=== PATIENT | female | born 1940 | race Caucasian/White ===

== ENCOUNTER 2020-12-17 13:22 | Outpatient (CLI) | payer MEDICARE, SELFPAY ==
[2020-12-17 13:58] LABS: Alanine Aminotransferase 19 U/L (4-35); Albumin Level 4.3 g/dL (3.5-5.1); Alkaline Phosphatase 75 U/L (38-126); Anion Gap 3 mmol/L (8-16); Aspartate Amino Transferase 32 U/L (14-36); Bilirubin,Total 0.6 mg/dL (0.2-1.3); Blood Urea Nitrogen 17 mg/dL (7-17); Calcium 9.1 mg/dL (8.4-10.2); Carbon Dioxide 32 mmol/L (22-30); Chloride 105 mmol/L (98-107); Cholesterol 229 mg/dL (0-200); Estimated Glomerular Filt Rate > 60; Glucose 97 mg/dL (65-105); HDL Direct 68 mg/dL; Potassium 4.6 mmol/L (3.4-5.0); Sodium 140 mmol/L (137-145); Triglycerides 105 mg/dL (<150)
[2020-12-17 14:09] LABS: LDL Cholesterol Direct 111 mg/dL
== END 2020-12-17 13:23 | disposition home or self-care (01) ==
PROVIDERS: PCP Emergency Medicine; Visit Provider Emergency Medicine
DX: E78.5 Hyperlipidemia, unspecified (principal)
CPT/HCPCS: 36415; 80053; 80061

== ENCOUNTER 2021-04-09 13:50 | Outpatient (CLI) | payer MEDICARE, SELFPAY ==
--- NOTE | ~2021-04-09 | MM_ITS ---
EXAMINATION: MM screening jeferson BI w ana paula HISTORY: Screening TECHNIQUE: Craniocaudal and mediolateral oblique 3-D tomosynthesis images were obtained and synthetic 2-D images were generated. CAD analysis was submitted and interpreted. COMPARISON: No prior studies for comparison. BREAST PARENCHYMAL COMPOSITION: The breasts are almost entirely fatty. FINDINGS: There is no evidence of suspicious mass, calcification, or architectural distortion to sugg est malignancy in either breast. There has been no suspicious interval change. IMPRESSION: 1. No mammographic evidence of malignancy. 2. Recommend routine screening mammography in one year. BI-RADS Category 1: Negative Reviewed, dictated and finalized at location A.
--- NOTE | ~2021-04-09 | DEXA_ITS ---
Bone Density Report Name: Maria Antonia Caballero Age: 81 Sex: Female Ethnicity: White Date of : 1940 Indication: osteopenia; height loss; prior fracture; cancer; asthma or emphysema; hysterectomy; postmenopausal Referring Provider: CHRISTIANO GANDARA Study: Bone densitometry was performed. Exam Date: April 09, 2021 Accession number: [id number] Bone Density: Region BMD T-score Z-score Classification AP Spine (L1-L4) 0.886 -1.5 1.3 Osteopenia Femoral Neck (Left) 0.594 -2.3 0.1 Osteopenia Total Hip (Left) 0.697 -2.0 0.1 Osteopenia Total Hip Bilateral Avg 0.664 -2.3 -0.2 Osteopenia Femoral Neck (Right) 0.592 -2.3 0.0 Osteopenia Total Hip (Right) 0.630 -2.6 -0.4 Osteoporosis World Health Organization criteria for BMD impression classify patients as: Normal (T-score at or above -1.0), Osteopenia (T-score between -1.0 and -2.5), or Osteoporosis (T-score at or below -2.5). 10-year Fracture Risk: FRAX not reported because: Some T-score for Spine Total or Hip Total or Femoral Neck at or below -2.5 Previous Exams: Region Exam Age BMD T-score BMD Change BMD Change Date g/cm2 vs Baseline vs Previous AP Spine(L1-L4) 04/09/2021 81 0.886 -1.5 0.024(2.8%)* 0.024(2.8%)* 07/20/2016 76 0.862 -1.7 Total Hip(Left) 04/09/2021 81 0.697 -2.0 -0.005(-0.7%) -0.005(-0.7%) 07/20/2016 76 0.702 -2.0 Total Hip(Right) 04/09/2021 81 0.630 -2.6 -0.022(-3.4%) -0.022(-3.4%) 07/20/2016 76 0.652 -2.4 *Denotes significance at 95% confidence level, LSC for AP Spine = 0.022 g/cm2, LSC for Total Hip = 0.027 g/cm2 Clinical Information Provided by Patient: Has had a low trauma fracture Has used the following medications: Vitamin D, Calcium Has the following medical conditions: Asthma or Emphysema, Cancer, Hysterectomy Patient maximum height was 62 Menopause Age: 35 Drinks caffeinated beverages Onset of menses at age 13 Number of children 2 Impression: The patient has established osteoporosis, based on the Right Total Hip T-score and the existence of a prior fracture. The patient has risk factors, including: previous fracture. No significant bone loss was observed. Discussion: HIGH RISK OF FRACTURE. BONE DENSITY IS UNDESIRABLY LOW AT ONE OR MORE SKELETAL SITES, CONSISTENT WITH POSTMENOPAUSAL OSTEOPOROSIS. This patient's lowest T-score, in a patient who has previously fractured, meets the World Health Organization's (WHO) criteria for severe osteoporosis. In untre
== END 2021-04-09 13:51 | disposition home or self-care (01) ==
LOC: ANHIMG 13:52
PROVIDERS: PCP Emergency Medicine; Visit Provider Emergency Medicine
DX: Z12.31 Encounter for screening mammogram for malignant neoplasm of breast (principal); Z78.0 Asymptomatic menopausal state; M85.88 Other specified disorders of bone density and structure, other site; M85.852 Other specified disorders of bone density and structure, left thigh; M85.851 Other specified disorders of bone density and structure, right thigh; M81.0 Age-related osteoporosis without current pathological fracture
CPT/HCPCS: 77063; 77067; 77080

== ENCOUNTER 2021-04-12 21:27 | Emergency (ER) | payer MEDICARE, SELFPAY ==
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
--- NOTE | ~2021-04-12 | XR_ITS ---
XR finger 5th LT min 2V 04/12/2021 21:54 Indication: Left fifth finger pain Procedure: 4 views left fifth finger Comparison: No prior studies for comparison. Findings: There is a nondisplaced fracture left fifth middle phalanx. There is nondisplaced fracture left fifth distal phalanx. Moderate soft tissue swelling. There is soft tissue gas. Impression: 1: Nondisplaced fractures left fifth middle and distal phalanges. Reviewed, dictated and finalized at location A. Impression: 1: Nondisplaced fractures left fifth middle and distal phalanges.
[2021-04-12 21:32] VITALS: BP 113/98; PULSE 68; RESP 18; TEMP 36.9; O2SAT 100
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
[2021-04-13] MEDS: AMOXICILLIN/CLAVULANATE K 875-125 MG TAB 1 TABLET PO (01:43)
[2021-04-13] MEDS: HYDROcodone/acetaminophen (*CRX) 5-325 MG TABLET 1 TAB PO (01:44)
[2021-04-13] MEDS: TETANUS,DIPHTHERIA,AC PERTUSSIS ADULT (0.5 ML) BOOSTRIX IM (01:44)
[2021-04-13] MEDS: LIDOCAINE HCL 1% LOCAL INJ 20 ML VIAL (02:46)
[2021-04-13 03:01] VITALS: BP 150/80; PULSE 64; RESP 18; O2SAT 98
--- NOTE | 2021-04-13 03:47 | PC.NURSE ---
finger splint and gauze dressing applied by ingredient handlerElis Her. Distal cms intact. pt's hand wrapped in roll gauze to secure splint. pt instructed to call Dr. Lazar's office 04/14/21 in am to follow up for open fracture. pt verbalized understanding of need to leave splint and dressing in place until follow up appt., and to burr picker abx and pain medication from pharmacy in am. pt also instructed to call ED or return for any numbness/tingling/color changes in injured finger.
== END 2021-04-13 03:52 | disposition home or self-care (01) ==
PROVIDERS: Emergency Provider Emergency Medicine; PCP Emergency Medicine
DX: S62.657B Nondisplaced fracture of middle phalanx of left little finger, initial encounter for open fracture (principal); S62.667B Nondisplaced fracture of distal phalanx of left little finger, initial encounter for open fracture; Z23 Encounter for immunization; Z85.820 Personal history of malignant melanoma of skin; Z89.429 Acquired absence of other toe(s), unspecified side; Z96.651 Presence of right artificial knee joint; V18.4XXA Pedal cycle driver injured in noncollision transport accident in traffic accident, initial encounter; Y93.55 Activity, bike riding
CPT/HCPCS: 12042; 29130; 71100; 73140; 90471; 90715; 99284; A9270

== ENCOUNTER 2021-06-24 11:21 | Outpatient (CLI) | payer MEDICARE, SELFPAY ==
[2021-06-24 11:45] LABS: Alanine Aminotransferase 19 U/L (4-35); Albumin Level 4.7 g/dL (3.5-5.1); Alkaline Phosphatase 81 U/L (38-126); Anion Gap 5 mmol/L (8-16); Aspartate Amino Transferase 31 U/L (14-36); Bilirubin,Total 0.7 mg/dL (0.2-1.3); Blood Urea Nitrogen 18 mg/dL (7-17); Calcium 9.6 mg/dL (8.4-10.2); Carbon Dioxide 31 mmol/L (22-30); Chloride 105 mmol/L (98-107); Cholesterol 231 mg/dL (0-200); Estimated Glomerular Filt Rate > 60; Glucose 105 mg/dL (65-110); HDL Direct 80 mg/dL; Potassium 4.7 mmol/L (3.4-5.0); Sodium 141 mmol/L (137-145); Triglycerides 150 mg/dL (<150)
[2021-06-24 11:56] LABS: LDL Cholesterol Direct 109 mg/dL
== END 2021-06-24 11:22 | disposition home or self-care (01) ==
PROVIDERS: PCP Emergency Medicine; Visit Provider Emergency Medicine
DX: I10 Essential (primary) hypertension (principal); Z13.220 Encounter for screening for lipoid disorders
CPT/HCPCS: 36415; 80053; 80061

== ENCOUNTER 2021-12-23 10:38 | Outpatient (CLI) | payer MEDICARE, SELFPAY ==
[2021-12-23 11:07] LABS: Alanine Aminotransferase 19 U/L (4-35); Albumin Level 4.5 g/dL (3.5-5.1); Alkaline Phosphatase 103 U/L (38-126); Anion Gap 4 mmol/L (8-16); Aspartate Amino Transferase 43 U/L (14-36); Bilirubin,Total 0.4 mg/dL (0.2-1.3); Blood Urea Nitrogen 19 mg/dL (7-17); Calcium 8.8 mg/dL (8.4-10.2); Carbon Dioxide 28 mmol/L (22-30); Chloride 107 mmol/L (98-107); Estimated Glomerular Filt Rate > 60; Glucose 107 mg/dL (65-110); Potassium 4.6 mmol/L (3.4-5.0); Sodium 139 mmol/L (137-145)
== END 2021-12-23 10:39 | disposition home or self-care (01) ==
LOC: ANHLAB 10:41
PROVIDERS: PCP Emergency Medicine; Visit Provider Emergency Medicine
DX: I10 Essential (primary) hypertension (principal)
CPT/HCPCS: 36415; 80053

== ENCOUNTER 2022-06-24 13:37 | Outpatient (CLI) | payer MEDICARE, SELFPAY ==
[2022-06-24 14:09] LABS: Alanine Aminotransferase 25 U/L (6-35); Albumin Level 4.7 g/dL (3.5-5.1); Alkaline Phosphatase 92 U/L (38-126); Anion Gap 7 mmol/L (8-16); Aspartate Amino Transferase 36 U/L (14-36); Bilirubin,Total 0.5 mg/dL (0.2-1.3); Blood Urea Nitrogen 20 mg/dL (7-17); Calcium 9.6 mg/dL (8.4-10.2); Carbon Dioxide 30 mmol/L (22-30); Chloride 101 mmol/L (98-107); Estimated Glomerular Filt Rate > 60; Glucose 98 mg/dL (65-110); Potassium 4.2 mmol/L (3.4-5.0); Sodium 138 mmol/L (137-145)
[2022-06-29 00:09] LABS: Vitamin D 1,25 (OH)2 Total 51 pg/mL (18-72); Vitamin D2 1,25 (OH)2 <8 pg/mL; Vitamin D3 1,25 (OH)2 51 pg/mL
== END 2022-06-24 13:38 | disposition home or self-care (01) ==
PROVIDERS: PCP Emergency Medicine; Visit Provider Emergency Medicine
DX: E55.9 Vitamin D deficiency, unspecified (principal); I10 Essential (primary) hypertension
CPT/HCPCS: 36415; 80053; 82652

== ENCOUNTER 2022-10-26 12:50 | Outpatient (CLI) | payer MEDICARE, SELFPAY ==
[2022-10-26 13:28] LABS: Alanine Aminotransferase 20 U/L (6-35); Albumin Level 4.6 g/dL (3.5-5.1); Alkaline Phosphatase 85 U/L (38-126); Anion Gap 6 mmol/L (8-16); Aspartate Amino Transferase 32 U/L (14-36); Bilirubin,Total 0.5 mg/dL (0.2-1.3); Blood Urea Nitrogen 21 mg/dL (7-17); Calcium 9.1 mg/dL (8.4-10.2); Carbon Dioxide 30 mmol/L (22-30); Chloride 104 mmol/L (98-107); Estimated Glomerular Filt Rate > 60; Glucose 121 mg/dL (65-110); Potassium 4.1 mmol/L (3.4-5.0); Sodium 140 mmol/L (137-145)
[2022-10-29 23:31] LABS: Vitamin D 1,25 (OH)2 Total 46 pg/mL (18-72); Vitamin D2 1,25 (OH)2 <8 pg/mL; Vitamin D3 1,25 (OH)2 46 pg/mL
== END 2022-10-26 12:51 | disposition home or self-care (01) ==
PROVIDERS: PCP Emergency Medicine; Visit Provider Emergency Medicine
DX: E55.9 Vitamin D deficiency, unspecified (principal); Z78.0 Asymptomatic menopausal state; I10 Essential (primary) hypertension
CPT/HCPCS: 36415; 80053; 82652

== ENCOUNTER 2022-11-11 14:32 | Outpatient (CLI) | payer MEDICARE, SELFPAY ==
--- NOTE | ~2022-11-11 | MM_ITS ---
EXAMINATION: MM screening jeferson BI w ana paula HISTORY: Screening mammogram TECHNIQUE: Craniocaudal and mediolateral oblique 3-D tomosynthesis images were obtained and synthetic 2-D images were generated. CAD analysis was submitted and interpreted. COMPARISON: 04/09/2021 BREAST PARENCHYMAL COMPOSITION: There are scattered areas of fibroglandular density. FINDINGS: No suspicious mass, calcification, or architectural distortion are identified in either ingrid ast to suggest malignancy. There has been no suspicious interval change. IMPRESSION: 1. No mammographic evidence of malignancy. 2. Recommend routine screening mammography while the patient remains in good health. BI-RADS Category 1: Negative Reviewed, dictated and finalized at location A. DELIVERER IMPRESSION: 1. No mammographic evidence of malignancy. 2. Recommend routine screening mammography while the patient remains in good he alth. BI-RADS Category 1: Negative
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
== END 2022-11-11 14:33 | disposition home or self-care (01) ==
LOC: ANHIMG 14:33
PROVIDERS: PCP Emergency Medicine; Visit Provider Emergency Medicine
DX: Z12.31 Encounter for screening mammogram for malignant neoplasm of breast (principal); Z78.0 Asymptomatic menopausal state; M85.88 Other specified disorders of bone density and structure, other site; M81.0 Age-related osteoporosis without current pathological fracture; M85.852 Other specified disorders of bone density and structure, left thigh; M85.851 Other specified disorders of bone density and structure, right thigh
CPT/HCPCS: 77063; 77067; 77080

== ENCOUNTER 2023-02-22 13:32 | Outpatient (CLI) | payer MEDICARE, SELFPAY ==
[2023-02-22 14:32] LABS: Alanine Aminotransferase 22 U/L (6-35); Albumin Level 4.4 g/dL (3.5-5.1); Alkaline Phosphatase 86 U/L (38-126); Anion Gap 3 mmol/L (8-16); Aspartate Amino Transferase 36 U/L (14-36); Bilirubin,Total 0.5 mg/dL (0.2-1.3); Blood Urea Nitrogen 20 mg/dL (7-17); Calcium 9.4 mg/dL (8.4-10.2); Carbon Dioxide 32 mmol/L (22-30); Chloride 102 mmol/L (98-107); Estimated Glomerular Filt Rate > 60; Glucose 73 mg/dL (65-110); Potassium 4.4 mmol/L (3.4-5.0); Sodium 137 mmol/L (137-145)
[2023-02-26 23:03] LABS: Vitamin D 1,25 (OH)2 Total 39 pg/mL (18-72); Vitamin D2 1,25 (OH)2 <8 pg/mL; Vitamin D3 1,25 (OH)2 39 pg/mL
== END 2023-02-22 13:33 | disposition home or self-care (01) ==
PROVIDERS: PCP Emergency Medicine; Visit Provider Emergency Medicine
DX: E55.9 Vitamin D deficiency, unspecified (principal); E78.5 Hyperlipidemia, unspecified
CPT/HCPCS: 36415; 80053; 82652

== ENCOUNTER 2023-06-22 13:46 | Outpatient (CLI) | payer MEDICARE, SELFPAY ==
[2023-06-22 14:52] LABS: Alanine Aminotransferase 17 U/L (6-35); Albumin Level 4.5 g/dL (3.5-5.1); Alkaline Phosphatase 61 U/L (38-126); Anion Gap 5 mmol/L (8-16); Aspartate Amino Transferase 33 U/L (14-36); Bilirubin,Total 0.6 mg/dL (0.2-1.3); Blood Urea Nitrogen 17 mg/dL (7-17); Calcium 9.1 mg/dL (8.4-10.2); Carbon Dioxide 30 mmol/L (22-30); Chloride 102 mmol/L (98-107); Estimated Glomerular Filt Rate > 60; Glucose 138 mg/dL (65-110); Potassium 4.4 mmol/L (3.4-5.0); Sodium 137 mmol/L (137-145)
[2023-06-22 15:31] LABS: Vitamin D 25 Hydroxy 40.4 ng/mL
== END 2023-06-22 13:47 | disposition home or self-care (01) ==
LOC: ANHLAB 13:48
PROVIDERS: PCP Emergency Medicine; Visit Provider Emergency Medicine
DX: E78.5 Hyperlipidemia, unspecified (principal); E55.9 Vitamin D deficiency, unspecified
CPT/HCPCS: 36415; 80053; 82306

== ENCOUNTER 2023-08-24 08:57 | Outpatient (CLI) | payer MEDICARE, SELFPAY ==
--- NOTE | 2023-08-24 09:06 | EST_ITS ---
Patient Info Name: Maria Antonia Caballero Age: 83 years : 1940 Gender: Female Ht: 62 in Wt: 119 lbs BSA: 1.54 m2 Technical Quality: Good Exam Date: 08/24/2023 9:19 AM Exam Location: Echo Lab Patient Status: Outpatient Admit Date: 08/24/2023 Staff Ordering Physician: Cody Stallworth MD Stock Worker And Deliverer: Jenny Powers RDCS Attending Provider: DR. JOLLY Referring Physician: Basim MOORE; Exercise Technologist: Mita Lopez RDCS Exercise Physician: Sancho Jolly DO Exam Type: CA stress echo Study Info Indications R07.9 - Chest pain, unspecified Treadmill exercise stress echocardiogram is performed. Summary 1. 1. Negative Jesus exercise stress test for ischemic ST changes by ECG criteria. 2. 2. Good functional capacity, achieving 8 METs of workload. 3. 3. Baseline hypertension with hypertensive response to exercise. 4. 4. Appropriate HR response to exercise. 5. 5. Appropriate HR recovery at 1 minute post exercise. 6. 6. Negative stress echocardiogram for ischemia by wall motion analysis. 7. 7. Patient informed of the above results. Stress Echo Findings Left Ventricle Appropriate increase in LV endocardial thickening with systole. Appropriate augmentation of contractility with systole. No wall motion abnormality. Left Ventricle Normal LV systolic function, no wall motion abnormality. Protocol: Jesus Stress ECG Details Stage: REST Duration (min): 1 min : 46 sec Speed (mph): 0.0 Grade (%): 0 HR (bpm): 62 SBP (mmHg): 166 DBP (mmHg): 93 METS: --- Stage: REST Duration (min): 13 min : 31 sec Speed (mph): 0.0 Grade (%): 0 HR (bpm): 71 SBP (mmHg): 166 DBP (mmHg): 93 METS: --- Stage: STAGE 1 Duration (min): 1 min : 0 sec Speed (mph): 1.7 Grade (%): 10 HR (bpm): 84 SBP (mmHg): 166 DBP (mmHg): 93 METS: --- Stage: STAGE 1 Duration (min): 2 min : 0 sec Speed (mph): 1.7 Grade (%): 10 HR (bpm): 90 SBP (mmHg): 166 DBP (mmHg): 93 METS: --- Stage: STAGE 1 Duration (min): 3 min : 0 sec Speed (mph): 1.7 Grade (%): 10 HR (bpm): 93 SBP (mmHg): 213 DBP (mmHg): 100 METS: --- Stage: STAGE 2 Duration (min): 1 min : 0 sec Speed (mph): 2.5 Grade (%): 12 HR (bpm): 124 SBP (mmHg): 213 DBP (mmHg): 100 METS: --- Stage: STAGE 2 Duration (min): 2 min : 0 sec Speed (mph): 2.5 Grade (%): 12 HR (bpm): 98 SBP (mmHg): 213 DBP (mmHg): 109 METS: --- Stage: STAGE 2 Duration (min): 3 min : 0 sec Speed (mph): 2.5 Grade (%): 12 HR (bpm): 100 SBP (mmHg): 213 DBP (mmHg): 109 METS: --- Stage: STAGE 3 Duration (min): 0 min : 55 sec Speed (mph): 0.0 Grade (%): 0 HR (bpm): 107 SBP (mmHg): 213 DBP (mmHg): 109 METS: --- Stage: RECOVERY Duration (min): 0 min : 4 sec Speed (mph): 0.0 Grade (%): 0 HR (bpm): 101 SBP (mmHg): 213 DBP (mmHg): 109 METS: --- Stage: RECOVERY Duration (min): 1 min : 4 sec Speed (mph): 0.0 Grade (%): 0 HR (bpm): 74 SBP (mmHg): 213 DBP (mmHg): 109 MET
== END 2023-08-24 08:58 | disposition home or self-care (01) ==
LOC: ANHCARD 09:02
PROVIDERS: PCP Emergency Medicine; Visit Provider Emergency Medicine
DX: R07.9 Chest pain, unspecified (principal); R01.1 Cardiac murmur, unspecified
CPT/HCPCS: 93351

== ENCOUNTER 2023-10-21 12:38 | Observation (INO) | payer MEDICARE, SELFPAY ==
[2023-10-21] VITALS (9 sets, daily range): BP systolic 123–163; BP diastolic 66–81; PULSE 76–89; RESP 12–20; TEMP 36.2–37.2; O2SAT 90–100
--- NOTE | ~2023-10-21 | CT_ITS ---
EXAMINATION: CT soft tissue neck wo con DATE: 10/21/2023 13:23 INDICATION: Neck pain. TECHNIQUE: Computed tomography (CT) of the neck was performed without intravenous contrast. Automated exposure control and iterative reconstruction technique were employed. The dose-length product was 3 82.79 mGy-cm. COMPARISON: None FINDINGS: There is mild scarring at the lung apices. There are likely changes of left ocular lens rep lacement surgery. There are no pathologically enlarged lymph nodes. The major salivary glands are nor mal. The palatine tonsils are normal. There is mild mucosal thickening involving the hypopharynx and supraglottic larynx. There is severe cervical spondylosis. IMPRESSION: 1. Subjective mild mucosal thickening involving the hypopharynx and supraglottic larynx suspicious fo r inflammation. Reviewed, dictated and finalized at location A. D REPORTER IMPRESSION: 1. Subjective mild mucosal thickening involving the hypopharynx and supraglotti c larynx suspicious for inflammation.
[2023-10-21 12:50] LABS: Glucose Point of Care 101 mg/dl (65-105)
--- NOTE | 2023-10-21 14:24 | ED.GENADULT ---
HPI - General Adult General Chief complaint: Unspecified <Edwin Jimenez APRN - Last Filed: 10/21/23 17:46> Stated complaint: Neck pain <Edwin Jimenez APRN - Last Filed: 10/21/23 17:46> Time Seen by Provider: 10/21/23 13:36 <Edwin Jimenez APRN - Last Filed: 10/21/23 17:46> Source: patient <Edwin Jimenez APRN - Last Filed: 10/21/23 17:46> Mode of arrival: ambulatory <Edwin Jimenez APRN - Last Filed: 10/21/23 17:46> Limitations: no limitations <Edwin Jimenez APRN - Last Filed: 10/21/23 17:46> History of Present Illness HPI narrative: Maria Antonia is an 83-year-old female patient presenting to the clinic today with complaints of right-sided neck pain radiating up into the right ear. She denies any injury to the right side of her neck. Denies any URI symptoms. States she is able to swallow. This happened when she went to a hinduism event this morning and came home and started having symptoms. Denies any headache, dizziness,or visual changes. <Edwin Jimenez APRN - Last Filed: 10/21/23 17:46> Related Data Home medications: Home Medications Medication Instructions Recorded Confirmed calcium carbonate 600 mg-vitamin 1 cap PO DAILY 08/16/19 10/21/23 D3 5 mcg (200 unit) capsule (Calcium 600 + D(3)) multivitamin (Daily Multi-Vitamin 1 tablet PO DAILY 08/16/19 10/21/23 tablet) omega 5-smp-sxg-fish oil 1,000 mg 1 cap PO DAILY 08/16/19 10/21/23 (120 mg-180 mg) capsule (Fish Oil) potassium acetate 99 meq BYMOUTH DAILY 08/16/19 10/21/23 doxylamine succinate 25 mg tablet 12.5 mg PO HS 10/21/23 10/21/23 gabapentin 600 mg tablet 600 mg PO BID 10/21/23 10/21/23 magnesium 200 mg tablet 200 mg PO DAILY 10/21/23 10/21/23 metoprolol succinate 100 mg 100 mg PO DAILY 10/21/23 10/21/23 tablet,extended release 24 hr zafirlukast 20 mg tablet 20 mg PO BID 10/21/23 10/21/23 <Edwin Jimenez APRN - Last Filed: 10/21/23 17:46> Allergies/adverse reactions: Allergies Allergy/AdvReac Type Severity Reaction Status Date / Time erythromycin base Allergy Mild Nausea Verified 10/21/23 18:09 <Edwin Jimenez APRN - Last Filed: 10/21/23 17:46> Review of Systems Review of Systems: Pertinent positives per HPI. Patient denies any fever, chills, rash, headache, visual changes, dizziness, cough, shortness of breath, chest pain, palpitations, nausea, vomiting, diarrhea, constipation, abdominal pain, or any urinary issues. <Edwin Jimenez APRN - Last Filed: 10/21/23 17:46> [facility] Past Medical History Medical History: Medical History Amputation toe FH: total knee replacement Hx of one miscarriage Melanoma <Edwin Jimenez APRN - Last Filed: 10/21/23 17:46> Surgical History Surgical History: Surgical History History of hysterectomy S/P dilation and curettage S/P endometrial ablation Status post right knee replacement <Edwin Jimenez APRN - Last Filed: 10/21/23 17:46> Family History Family History: Family History Father Heart attack Mother Encephalitis <Edwin Jimenez APRN - Last Filed: 10/21/23 17:46> Social History Social History: Social History Smoking status: Never smoker Alcohol intake: current Substance use: never Do You Feel Safe in your Home?: No Lack of Transportation: No Lack of Food: Never True Current Housing: I Have Housing Concerned About Future Housing: No Difficulty Paying Gas/Electric Bills: No Difficulty Paying for Meds: No Currently Unemployed: No Education: High School Diploma/GED Difficulty w/ Childcare or Family Care: No Spiritual care concerns: No <Edwin Jimenez, ARCHITECTURAL DRAFTSPERSON - Last Filed:
[2023-10-21 14:53] LABS: Basophils Absolute Auto 0.1 K/mm3 (0.0-0.1); Basophils Percent Auto 0.3 % (0.2-1.2); Immature Granulocyte Absolute 0.24 K/mm3 (0.00-0.031); Immature Granulocyte Percent A 1.2 % (0-0.5); Lymphocytes Absolute Auto 0.44 K/mm3 (0.9-3.2); Lymphocytes Percent Auto 2.1 % (18.3-44.2); Mean Corpuscular HGB Conc 34.1 g/dl (32-36); Mean Corpuscular Hemoglobin 34.5 pg (26-34); Monocytes Percent Auto 4.8 % (2.6-8.5); Neutrophils Absolute Auto 18.9 K/mm3 (1.3-6.7); Neutrophils Percent Auto 91.6 % (45.5-73.1); Platelet Count Result 195 k/mm3 (150-375); Red Blood Count 4.06 M/mm3 (4.2-5.4); Red Cell Distribution Width 12.4 % (11.5-14.5); White Blood Count 20.6 K/mm3 (4.5-10.0)
[2023-10-21 15:04] LABS: Alanine Aminotransferase 20 U/L (6-35); Albumin Level 4.2 g/dL (3.5-5.1); Alkaline Phosphatase 73 U/L (38-126); Anion Gap 7 mmol/L (8-16); Aspartate Amino Transferase 39 U/L (14-36); Bilirubin,Total 1.1 mg/dL (0.2-1.3); Blood Urea Nitrogen 16 mg/dL (7-17); Calcium 9.1 mg/dL (8.4-10.2); Carbon Dioxide 26 mmol/L (22-30); Chloride 101 mmol/L (98-107); Estimated CRCL calculation 41 ml/min; Estimated Glomerular Filt Rate > 60; Glucose 121 mg/dL (65-110); Potassium 3.6 mmol/L (3.4-5.0); Sodium 134 mmol/L (137-145)
[2023-10-21 15:15] LABS: Strep Group A RT-PCR NOT DETECTED (Negative)
[2023-10-21] MEDS: dexAMETHasone SOD PHOS INJ 4 MG/ML VIAL IV PUSH ×2 (15:51→22:00)
[2023-10-21 16:00] LABS: Lactic Acid Reflex 1.5 mmol/L (0.7-2.0)
[2023-10-21] MEDS: AMPICILLIN SULB 3 GM/NS 100 ML 3 GM/100 ML VIAL IVPB (16:20)
--- NOTE | 2023-10-21 17:54 | ADMGEN ---
This patient, Maria Antonia Caballero, was admitted to Medical Room 341-01. Patient/family oriented to hospital policies and general routines including ID bracelet, bed and alarms, visiting hours, pain management, procedures, bathroom and other care routines, personal items, smoking policy, room service/diet, and visiting hours. Information on how to activate the Rapid Response Team has been discussed. Patient/Family are encouraged to report perceived risks to care and to ask questions if they do not understand what they are told or what they should do.
[2023-10-21] MEDS: SODIUM CHLORIDE 0.9% IV 1,000 ML 125 ML IV CONT (17:59)
--- NOTE | 2023-10-21 20:37 | PM.IMHP ---
H&P: HPI History of Present Illness Date/Time: 10/21/23 21:00 Chief Complaint: Neck pain. Narrative: This is a very pleasant 83-year-old female with asthma who presented to the emergency department via EMS from home for evaluation of neck pain. The patient provides the following history. She felt fine when she got up this morning and went to a scientologist function. Towards the end of the function she started to have some pain in her right ear and when she got home she developed severe pain in the right side of her neck and right side of the throat. The pain was so severe that she was having tremors. It sounds like she may have had some chills as well. She was afebrile on arrival to the ED. labs were significant for WBC count of 20.6, sodium 134, lactic acid 1.5. She tested negative for group a strep. CT of the soft tissue of the neck showed mild mucosal thickening involving the hypopharynx and supraglottic larynx suspicious for inflammation. ED provider spoke with Dr. Son, on-call ENT, who recommended starting the patient on antibiotics and steroids and he will see her in the morning. At the time my evaluation she still has pain, especially with swallowing. She denies fever, sick contacts, cough, nausea, vomiting, shortness of breath, and wheezing. Review of Systems Review of Systems: Twelve systems were reviewed and are negative except for as per HPI. [facility] Past Medical History Medical History (Updated 10/21/23 @ 23:40 by Martha Claudio PA-C) Asthma Gastric ulcer Hypertension Melanoma Surgical History Surgical History (Updated 10/21/23 @ 23:34 by Martha Claudio PA-C) Amputation toe History of appendectomy History of arthroplasty of right knee History of dilation and curettage History of endometrial ablation History of hysterectomy Family History Family History Father Heart attack Mother Encephalitis Social History Social History (Updated 10/21/23 @ 23:35 by Martha Claudio PA-C) Social History: Surrogate medical decision maker: Griffin Caballero, spouse. Code status: Full code. Smoking status: Never smoker Alcohol intake: current Substance use: never Do You Feel Safe in your Home?: No Lack of Transportation: No Lack of Food: Never True Current Housing: I Have Housing Concerned About Future Housing: No Difficulty Paying Gas/Electric Bills: No Difficulty Paying for Meds: No Currently Unemployed: No Education: High School Diploma/GED Difficulty w/ Childcare or Family Care: No Spiritual care concerns: No Meds Home Medications and Allergies Home Medications Medication Instructions Recorded Confirmed Type calcium carbonate 600 mg-vitamin 1 cap PO DAILY 08/16/19 10/21/23 History D3 5 mcg (200 unit) capsule (Calcium 600 + D(3)) multivitamin (Daily Multi-Vitamin 1 tablet PO DAILY 08/16/19 10/21/23 History tablet) omega 5-ggy-qcs-fish oil 1,000 mg 1 cap PO DAILY 08/16/19 10/21/23 History (120 mg-180 mg) capsule (Fish Oil) potassium acetate 99 meq BYMOUTH DAILY 08/16/19 10/21/23 History alendronate 70 mg tablet See Rx Instructions .Route 03/30/23 10/21/23 Rx .COMPLEX #12 tabs tramadol 50 mg tablet 50 mg PO BID PRN pain #60 tabs 10/18/23 10/21/23 Rx doxylamine succinate 25 mg tablet 12.5 mg PO HS 10/21/23 10/21/23 History gabapentin 600 mg tablet 600 mg PO BID 10/21/23 10/21/23 History magnesium 200 mg tablet 200 mg PO DAILY 10/21/23 10/21/23 History metoprolol succinate 100 mg 100 mg PO DAILY 10/21/23 10/21/23 History tablet,extended release 24 hr zafirlukast 20 mg tablet 20 mg PO BID 10/21/23 10/21/23 History Allergies Allergy/AdvReac Type Severity Reaction Status Date / Time erythromycin base Allergy Mild Nausea Verified 10/21/23 18:09 Vital Signs Vital Signs - 24 hr 10/21/23 12:41 10/21/23 13:24 10/21/23 14:01 Temperature 97.1 F L Pulse Rate 76 80
[2023-10-22] MEDS: KETOROLAC 15 MG/ML VIAL (*BKC) IV PUSH (00:06)
[2023-10-22] MEDS: AMPICILLIN SULB 1.5 GM/NS 50ML 1.5 GM/50 ML VIAL IVPB ×5 (00:07→23:11)
[2023-10-22 00:53] LABS: Influenza A QL RT-PCR Negative (Negative); Influenza B QL RT-PCR Negative (Negative); RSV RNA, RT-PCR Negative (Negative); SARS-CoV-2 RNA PCR Negative (Negative)
[2023-10-22] MEDS: dexAMETHasone SOD PHOS INJ 4 MG/ML VIAL IV PUSH (05:16)
[2023-10-22] MEDS: SODIUM CHLORIDE 0.9% IV 1,000 ML 125 ML IV CONT ×3 (05:23→17:31)
[2023-10-22 05:25] VITALS: BP 129/74; PULSE 67; RESP 14; TEMP 36.6; O2SAT 99
[2023-10-22 06:37] LABS: Hematocrit 37.6 % (37.0-47.0); Mean Corpuscular HGB Conc 34.6 g/dl (32-36); Mean Corpuscular Hemoglobin 34.4 pg (26-34); Mean Corpuscular Volume 99.5 fl (80-100); Mean Platelet Volume 11.1 fl (7.4-10.4); Platelet Count Result 199 k/mm3 (150-375); Red Blood Count 3.78 M/mm3 (4.2-5.4); Red Cell Distribution Width 12.7 % (11.5-14.5); White Blood Count 24.9 K/mm3 (4.5-10.0)
[2023-10-22 09:10] VITALS: PULSE 74
[2023-10-22] MEDS: METOPROLOL SUCCINATE EXT REL 100 MG TABCR PO (09:10)
[2023-10-22] MEDS: ZAFIRLUKAST 20 MG TABLET PO ×2 (09:11→17:32)
[2023-10-22] MEDS: GABAPENTIN 300 MG CAPSULE 600 MG PO ×2 (09:11→17:32)
[2023-10-22] MEDS: ACETAMINOPHEN ELIXIR 325 MG/10.15 ML UDC 650 MG PO (11:37)
[2023-10-22 11:51] LABS: CRP 13.2 mg/dL (<1.0)
[2023-10-22] MEDS: LIDOCAINE HCL 1% LOCAL INJ 10 ML VIAL INFILTRATE (11:51)
--- NOTE | 2023-10-22 12:23 | P.PCNBED_ITS ---
Procedures Other Procedures Procedure 1: Other Procedure: Procedure be flexible laryngoscopy. Procedure performed at bedside. Verbal consent obtained. Afrin and 2% lidocaine without epinephrine sprayed into the bilateral nasal passages. Flexible 4 mm laryngoscope utilized. Left nasal pa ssage utilized right was too tight. Really boggy sinonasal mucosa. Normal nasopharynx normal oropharynx the pharynx and hypopharynx were significant for right-sided edema going on to the hypo pharyngeal tissue as well there was cellulitis at this tissue edema. No obvious abscess airway is patent. Patient is not at risk currently of losing airway. Patient tolerated the procedure fairly well some discomfort.
--- NOTE | 2023-10-22 12:24 | WPDCN ---
Assessment and Plan Assessment and plan (1) Pharyngitis: Code(s): J02.9 - Acute pharyngitis, unspecified Status: Acute Assessment and Plan: okay for diet advance as tolerated. I would trend white count daily. Finish the 3 doses of Decadron. Continue IV Unasyn. Patient needs to continue to feel better me to see a down trend in the white count before discharging. Flexible laryngoscopy was significant for right-sided cellulitis edema of the pharynx hypopharynx and supraglottic region. Airways patent. Patient worsens either by white count or symptomatically would consider CT neck with contrast. HPI Data of Consult Date/Time: 10/22/23 12:24 Requesting Physician: Maurice Ugarte MD Primary Care Provider: Cody Stallworth MD Consult Narrative Narrative: Maria Antonia Caballero is a 83 year old female With sore throat CT scan without contrast in the ED demonstrated right-sided pharyngeal edema. Patient reported she had trouble swallowing could not speak. Today after 1-2 doses of Decadron and IV Unasyn patient reports she is much better still has persistent right-sided throat pain but she can speak and swallow. White count is elevated was 20 in the ED 24 today. [facility] Past Medical History Medical History (Updated 10/21/23 @ 23:40 by Martha Claudio PA-C) Asthma Gastric ulcer Hypertension Melanoma Surgical History Surgical History (Updated 10/21/23 @ 23:34 by Martha Claudio PA-C) Amputation toe History of appendectomy History of arthroplasty of right knee History of dilation and curettage History of endometrial ablation History of hysterectomy Family History Family History Father Heart attack Mother Encephalitis Social History Social History (Updated 10/21/23 @ 23:35 by Martha Claudio PA-C) Social History: Surrogate medical decision maker: Griffin Caballero, spouse. Code status: Full code. Smoking status: Never smoker Alcohol intake: current Substance use: never Do You Feel Safe in your Home?: No Lack of Transportation: No Lack of Food: Never True Current Housing: I Have Housing Concerned About Future Housing: No Difficulty Paying Gas/Electric Bills: No Difficulty Paying for Meds: No Currently Unemployed: No Education: High School Diploma/GED Difficulty w/ Childcare or Family Care: No Spiritual care concerns: No Meds Home Medications and Allergies Home Medications Medication Instructions Recorded Confirmed Type calcium carbonate 600 mg-vitamin 1 cap PO DAILY 08/16/19 10/21/23 History D3 5 mcg (200 unit) capsule (Calcium 600 + D(3)) multivitamin (Daily Multi-Vitamin 1 tablet PO DAILY 08/16/19 10/21/23 History tablet) omega 1-xpz-gop-fish oil 1,000 mg 1 cap PO DAILY 08/16/19 10/21/23 History (120 mg-180 mg) capsule (Fish Oil) potassium acetate 99 meq BYMOUTH DAILY 08/16/19 10/21/23 History alendronate 70 mg tablet See Rx Instructions .Route 03/30/23 10/21/23 Rx .COMPLEX #12 tabs tramadol 50 mg tablet 50 mg PO BID PRN pain #60 tabs 10/18/23 10/21/23 Rx doxylamine succinate 25 mg tablet 12.5 mg PO HS 10/21/23 10/21/23 History gabapentin 600 mg tablet 600 mg PO BID 10/21/23 10/21/23 History magnesium 200 mg tablet 200 mg PO DAILY 10/21/23 10/21/23 History metoprolol succinate 100 mg 100 mg PO DAILY 10/21/23 10/21/23 History tablet,extended release 24 hr zafirlukast 20 mg tablet 20 mg PO BID 10/21/23 10/21/23 History Allergies Allergy/AdvReac Type Severity Reaction Status Date / Time erythromycin base Allergy Mild Nausea Verified 10/21/23 18:09 Vital Signs Vital Signs - 24 hr 10/21/23 12:41 10/21/23 13:24 10/21/23 14:01 Temperature 36.2 C L Pulse Rate 76 80 85 Respiratory Rate 20 15 12 Blood Pressure 150/75 H 158/78 H 163/80 H Pulse Oximetry 100 90 94 Oxygen Delivery Room Air 10/21/23 15:00 10/21/23 15:51 0
[2023-10-22 12:56] LABS: Anion Gap 8 mmol/L (8-16); Blood Urea Nitrogen 17 mg/dL (7-17); Calcium 8.8 mg/dL (8.4-10.2); Carbon Dioxide 21 mmol/L (22-30); Chloride 109 mmol/L (98-107); Estimated CRCL calculation 48 ml/min; Estimated Glomerular Filt Rate > 60; Glucose 137 mg/dL (65-110); Magnesium 2.4 mg/dL (1.6-2.3); Potassium 3.6 mmol/L (3.4-5.0); Sodium 138 mmol/L (137-145)
[2023-10-22 13:02] VITALS: O2SAT 97
--- NOTE | 2023-10-22 13:34 | PM.IMPN ---
Progress Note: A&P Assessment and Plan (1) Pharyngitis: Code(s): J02.9 - Acute pharyngitis, unspecified Status: Acute Assessment and Plan: The patient presented to the emergency department for evaluation of right-sided neck. CT of the soft tissue of the neck showed mild mucosal thickening involving the hypopharynx and supraglottic larynx suspicious for inflammation. No areas of abscess were noted but this was a noncontrast CT. White blood cell count was noted to be 20.6 on arrival with an elevated CRP of 13.2. She tested negative for group A strep. Respiratory panel of COVID, flu and RSV were all negative. Dr. Son was consulted by the ED provider and he recommended empiric antibiotics and scheduled steroids. Analgesics are available as needed. Will trend CRP due to patient being on scheduled steroids that can cause an accurate level of white blood cells in the serum. (2) Neck pain on right side: Code(s): M54.2 - Cervicalgia Status: Acute Assessment and Plan: Likely due to acute pharyngitis. Analgesics as needed. (3) Hypertension: Code(s): I10 - Essential (primary) hypertension Status: Acute Assessment and Plan: Continue home medication. (4) Asthma: Qualifiers: Asthma severity: mild Asthma persistence: intermittent Asthma complication type: uncomplicated Qualified Code(s): J45.20 - Mild intermittent asthma, uncomplicated Code(s): J45.909 - Unspecified asthma, uncomplicated Status: Acute Assessment and Plan: She is protecting her airway and there is no evidence of wheezing or stridor on exam. Her home medications will be reviewed and resumed as appropriate. Subjective Date/time seen: 10/22/23 13:34 Interval history: Patient continues to have right-sided neck pain but it is improved since ED arrival. She denies any recent sick contacts. She does not believe she had a fever prior to ED arrival. Continues to have difficulty swallowing but this is in approved since coming to the ER. Will continue current treatment at this time. Exam Narrative: GENERAL: Comfortable, no acute distress HENMT: moist mucous membranes EYES: EOM intact b/l NECK: Right-sided cervical and submandibular lymphadenopathy RESPIRATORY: clear to auscultation CARDIO: RRR GI: soft, nontender, bowel sounds present SKIN: no rashes EXTREMITIES: no edema, redness or tenderness Objective Data Vital Signs Vital Signs: Vital Signs - 24 hr 10/21/23 14:01 10/21/23 15:00 10/21/23 15:51 Temperature Pulse Rate 85 86 89 Respiratory Rate 12 15 17 Blood Pressure 163/80 H 160/78 H 129/81 Pulse Oximetry 94 98 100 Oxygen Delivery 10/21/23 16:16 10/21/23 16:31 10/21/23 17:40 Temperature Pulse Rate 89 87 89 Respiratory Rate 12 16 16 Blood Pressure 129/72 123/66 137/75 Pulse Oximetry 98 96 98 Oxygen Delivery 10/21/23 18:33 10/21/23 20:09 10/22/23 05:25 Temperature 98.9 F 97.9 F Pulse Rate 83 67 Respiratory Rate 16 14 Blood Pressure 136/71 129/74 Pulse Oximetry 96 99 Oxygen Delivery Room Air 10/22/23 09:10 10/22/23 09:12 10/22/23 13:02 Temperature Pulse Rate 74 Respiratory Rate Blood Pressure Pulse Oximetry 97 Oxygen Delivery Room Air Room Air Intake/Output Intake/Output: Intake & Output 10/19/23 10/20/23 10/21/23 10/22/23 23:59 23:59 23:59 23:59 Intake Total 100 2350 Balance 100 2350 Meds/Results Medications: Active Medications Generic Name Dose Route Start Last Admin Trade Name Freq PRN Reason Stop Dose Admin Acetaminophen 650 mg 10/21/23 23:41 10/22/23 11:37 Acetaminophen Elixir 325 Mg/10.15 Ml Udc PO 650 mg Q6H PRN Administration Mild Pain (1-3) or Fever Dexamethasone Sodium Phosphate 4 mg 10/21/23 15:30 10/22/23 05:16 Dexamethasone Sod Phos Inj 4 Mg/Ml Vial IV PUSH 4 mg Q8HR CHANTAL Administration Gabapen
[2023-10-22 14:00] VITALS: BP 111/65; PULSE 82; RESP 16; TEMP 37; O2SAT 99
[2023-10-22] MEDS: traMADol HCL (*CRX) 50 MG TABLET PO (17:47)
[2023-10-22 19:50] VITALS: BP 125/56; PULSE 77; RESP 16; TEMP 36.8; O2SAT 99
[2023-10-23 05:26] VITALS: BP 139/86; PULSE 63; RESP 18; TEMP 36.4; O2SAT 100
[2023-10-23] MEDS: SODIUM CHLORIDE 0.9% IV 1,000 ML 125 ML IV CONT (05:43)
[2023-10-23] MEDS: AMPICILLIN SULB 1.5 GM/NS 50ML 1.5 GM/50 ML VIAL IVPB ×4 (05:43→23:17)
[2023-10-23] MEDS: ACETAMINOPHEN ELIXIR 325 MG/10.15 ML UDC 650 MG PO ×2 (05:48→18:12)
[2023-10-23] MEDS: traMADol HCL (*CRX) 50 MG TABLET PO ×2 (05:49→18:13)
[2023-10-23 06:22] LABS: Hematocrit 37.8 % (37.0-47.0); Hemoglobin 12.7 g/dL (12.0-15.0); Mean Corpuscular HGB Conc 33.6 g/dl (32-36); Mean Corpuscular Hemoglobin 34.5 pg (26-34); Mean Corpuscular Volume 102.7 fl (80-100); Mean Platelet Volume 11.7 fl (7.4-10.4); Platelet Count Result 184 k/mm3 (150-375); Red Blood Count 3.68 M/mm3 (4.2-5.4); Red Cell Distribution Width 13.2 % (11.5-14.5); White Blood Count 16.1 K/mm3 (4.5-10.0)
[2023-10-23 06:24] LABS: Anion Gap 4 mmol/L (8-16); Blood Urea Nitrogen 17 mg/dL (7-17); CRP 6.9 mg/dL (<1.0); Calcium 8.2 mg/dL (8.4-10.2); Carbon Dioxide 23 mmol/L (22-30); Chloride 115 mmol/L (98-107); Estimated CRCL calculation 48 ml/min; Estimated Glomerular Filt Rate > 60; Glucose 109 mg/dL (65-110); Potassium 3.7 mmol/L (3.4-5.0); Sodium 142 mmol/L (137-145)
[2023-10-23 09:31] VITALS: PULSE 78
[2023-10-23] MEDS: METOPROLOL SUCCINATE EXT REL 100 MG TABCR PO (09:31)
[2023-10-23] MEDS: ENOXAPARIN 40 MG/0.4 ML SYRINGE SUB-Q (09:31)
[2023-10-23] MEDS: ZAFIRLUKAST 20 MG TABLET PO ×2 (09:32→17:32)
[2023-10-23] MEDS: POTASSIUM CHLORIDE 20 MEQ ER TABLET 40 MEQ PO (09:32)
[2023-10-23] MEDS: GABAPENTIN 300 MG CAPSULE 600 MG PO ×2 (09:32→17:32)
[2023-10-23 14:00] VITALS: BP 127/69; PULSE 55; RESP 16; TEMP 37; O2SAT 100
--- NOTE | 2023-10-23 14:53 | PM.IMPN ---
Progress Note: A&P Assessment and Plan (1) Pharyngitis: Code(s): J02.9 - Acute pharyngitis, unspecified Status: Acute Assessment and Plan: The patient presented to the emergency department for evaluation of right-sided neck. CT of the soft tissue of the neck showed mild mucosal thickening involving the hypopharynx and supraglottic larynx suspicious for inflammation. No areas of abscess were noted but this was a noncontrast CT. White blood cell count was noted to be 20.6 on arrival with an elevated CRP of 13.2. She tested negative for group A strep. Respiratory panel of COVID, flu and RSV were all negative. Dr. Son was consulted by the ED provider and he recommended empiric antibiotics with Unasyn. Analgesics are available as needed. Steroids discontinued. WBC trending down. (2) Neck pain on right side: Code(s): M54.2 - Cervicalgia Status: Acute Assessment and Plan: Likely due to acute pharyngitis. Analgesics as needed. (3) Hypertension: Code(s): I10 - Essential (primary) hypertension Status: Acute Assessment and Plan: Continue home medication. (4) Asthma: Qualifiers: Asthma severity: mild Asthma persistence: intermittent Asthma complication type: uncomplicated Qualified Code(s): J45.20 - Mild intermittent asthma, uncomplicated Code(s): J45.909 - Unspecified asthma, uncomplicated Status: Acute Assessment and Plan: She is protecting her airway and there is no evidence of wheezing or stridor on exam. Her home medications will be reviewed and resumed as appropriate. Subjective Date/time seen: 10/23/23 14:53 Interval history: Patient improving on IV antibiotic therapy. If patient continues to do well hope to transition to p.o. antibiotics tomorrow. Waiting for further recommendations from ENT. She is eating and drinking well and a lot less tender today. Exam Narrative: GENERAL: Comfortable, no acute distress HENMT: moist mucous membranes EYES: EOM intact b/l NECK: Right-sided cervical and submandibular lymphadenopathy -- Improved RESPIRATORY: clear to auscultation CARDIO: RRR GI: soft, nontender, bowel sounds present SKIN: no rashes EXTREMITIES: no edema, redness or tenderness Objective Data Vital Signs Vital Signs: Vital Signs - 24 hr 10/22/23 19:50 10/23/23 05:26 10/23/23 09:31 Temperature 98.3 F 97.6 F Pulse Rate 77 63 78 Respiratory Rate 16 18 Blood Pressure 125/56 L 139/86 Pulse Oximetry 99 100 Oxygen Delivery 10/23/23 10:45 Temperature Pulse Rate Respiratory Rate Blood Pressure Pulse Oximetry Oxygen Delivery Room Air Intake/Output Intake/Output: Intake & Output 10/20/23 10/21/23 10/22/23 10/23/23 23:59 23:59 23:59 23:59 Intake Total 100 3940 1440 Balance 100 3940 1440 Meds/Results Medications: Active Medications Generic Name Dose Route Start Last Admin Trade Name Freq PRN Reason Stop Dose Admin Acetaminophen 650 mg 10/21/23 23:41 10/23/23 05:48 Acetaminophen Elixir 325 Mg/10.15 Ml Udc PO 650 mg Q6H PRN Administration Mild Pain (1-3) or Fever Enoxaparin Sodium 40 mg 10/23/23 09:00 10/23/23 09:31 Enoxaparin 40 Mg/0.4 Ml Syringe SUB-Q 40 mg DAILY CHANTAL Administration Gabapentin 600 mg 10/22/23 09:00 10/23/23 09:32 Gabapentin 300 Mg Capsule PO 600 mg BID CHANTAL Administration Ampicillin Sodium/Sulbactam Sodium 1.5 gm in 50 mls @ 100 mls/hr 10/22/23 00:00 10/23/23 12:52 Unasyn 1.5 Gm/Ns 50 Ml IVPB 100 mls/hr Q6HR CHANTAL Administration Metoprolol Succinate 100 mg 10/22/23 09:00 10/23/23 09:31 Metoprolol Succinate Ext Rel 100 Mg Tabcr PO 100 mg DAILY CHANTAL Administration Potassium Chloride 40 meq 10/22/23 11:35 10/23/23 09:32 Potassium Chloride 20 Meq Er Tablet PO 40 meq DAILY CHANTAL Administration Tramadol HCl 50 mg 10/21/23 23:42 10/23/23
[2023-10-23 20:47] VITALS: BP 123/67; PULSE 54; RESP 16; TEMP 36.9; O2SAT 97
[2023-10-24] MEDS: ACETAMINOPHEN ELIXIR 325 MG/10.15 ML UDC 650 MG PO (02:47)
[2023-10-24 04:50] VITALS: BP 127/60; PULSE 63; RESP 14; TEMP 36.6; O2SAT 98
[2023-10-24 05:49] LABS: Hematocrit 35.9 % (37.0-47.0); Mean Corpuscular HGB Conc 33.4 g/dl (32-36); Mean Corpuscular Hemoglobin 34.6 pg (26-34); Mean Corpuscular Volume 103.5 fl (80-100); Mean Platelet Volume 11.1 fl (7.4-10.4); Platelet Count Result 161 k/mm3 (150-375); Red Blood Count 3.47 M/mm3 (4.2-5.4); Red Cell Distribution Width 13.3 % (11.5-14.5); White Blood Count 11.3 K/mm3 (4.5-10.0)
[2023-10-24] MEDS: AMPICILLIN SULB 1.5 GM/NS 50ML 1.5 GM/50 ML VIAL IVPB ×2 (06:00→12:18)
[2023-10-24 06:01] LABS: Anion Gap 4 mmol/L (8-16); Blood Urea Nitrogen 15 mg/dL (7-17); Calcium 8.3 mg/dL (8.4-10.2); Carbon Dioxide 23 mmol/L (22-30); Chloride 112 mmol/L (98-107); Estimated CRCL calculation 48 ml/min; Estimated Glomerular Filt Rate > 60; Glucose 93 mg/dL (65-110); Potassium 4.1 mmol/L (3.4-5.0); Sodium 139 mmol/L (137-145)
[2023-10-24 08:50] VITALS: PULSE 65
[2023-10-24] MEDS: METOPROLOL SUCCINATE EXT REL 100 MG TABCR PO (08:50)
[2023-10-24] MEDS: ZAFIRLUKAST 20 MG TABLET PO (08:51)
[2023-10-24] MEDS: GABAPENTIN 300 MG CAPSULE 600 MG PO (08:51)
[2023-10-24] MEDS: POTASSIUM CHLORIDE 20 MEQ ER TABLET 40 MEQ PO (08:51)
[2023-10-24] MEDS: ENOXAPARIN 40 MG/0.4 ML SYRINGE SUB-Q (08:51)
[2023-10-24] MEDS: traMADol HCL (*CRX) 50 MG TABLET PO (08:53)
--- NOTE | 2023-10-24 11:59 | PM.DS ---
DS: Admitting Diagnosis Discharge Date 10/24/23 Admitting Diagnosis Pharyngitis DS: Discharge Diagnosis Discharge Diagnosis (1) Pharyngitis: Code(s): J02.9 - Acute pharyngitis, unspecified Status: Acute (2) Neck pain on right side: Code(s): M54.2 - Cervicalgia Status: Acute (3) Hypertension: Code(s): I10 - Essential (primary) hypertension Status: Acute (4) Asthma: Qualifiers: Asthma complication type: uncomplicated Asthma persistence: intermittent Asthma severity: mild Qualified Code(s): J45.20 - Mild intermittent asthma, uncomplicated Code(s): J45.909 - Unspecified asthma, uncomplicated Status: Acute DS: Summary Hospital Course Hospital Course: This is an 83-year-old female with a past medical history of hypertension, GERD and cardiac murmur that presented to the ED on 10/21/2023 due to difficulty swallowing and neck pain. She was afebrile on arrival to the ED with white blood cell counts give it of 20.6. Patient tested negative for group a strep. CT of the soft tissue of the neck revealed mild mucosal thickening involving the hypopharynx and supraglottic larynx suspicious for inflammation. Patient tested negative for COVID, flu and RSV. ENT was consulted. Patient was started on Unasyn for pharyngitis. Patient underwent flexible laryngoscopy showing right-sided edema going on to the hypopharyngeal tissue as well as cellulitis at this site. Patient was continued on antibiotic therapy. Patient's symptoms improved during hospital stay as well as white count trending down. She was transitioned to p.o. antibiotics and discharged home in the care of her son and has been. there is for surgery or some memory problems between both the patient and her and this was related to patient's son. Labs and vital signs are stable and she is medically clear for discharge at this time. Time Spent with Patient Time attestation: Total time spent providing and/or coordinating discharge services: Exam Narrative: GENERAL: Comfortable, no acute distress HENMT: moist mucous membranes EYES: EOM intact b/l NECK: Right-sided cervical and submandibular lymphadenopathy -- Improved RESPIRATORY: clear to auscultation CARDIO: RRR GI: soft, nontender, bowel sounds present SKIN: no rashes EXTREMITIES: no edema, redness or tenderness DS: Data Data Completed and Pending Labs on day of discharge: Labs from last 24 hours 10/24/23 05:40 WBC 11.3 H RBC 3.47 L Hgb 12.0 Hct 35.9 L MCV 103.5 H MCH 34.6 H MCHC 33.4 RDW 13.3 Plt Count 161 MPV 11.1 H Sodium 139 Potassium 4.1 Chloride 112 H Carbon Dioxide 23 Anion Gap 4 L BUN 15 Creatinine 0.60 L Estim Creat Clear Calc 48 Estimated GFR > 60 Glucose 93 Calcium 8.3 L Preliminary micro results at discharge 10/21/23 16:05 Blood Culture - Preliminary Blood 10/21/23 15:43 Blood Culture - Preliminary Blood Discharge Plan Discharge Attending physician on discharge: Homer Bazzi Consulting providers: Alessandro Son; Edwin Jimenez Discharging Clinician: Mere Bella Patient Disposition: Home, Self-Care Activity: as tolerated Diet: regular Discharge Instructions: Medications: Augmentin twice daily through 10/30/2023. Next does this evening. May use throat lozenges as needed to help with sore throat. Warm compress to neck to help with lymph node pain. Discharge disposition: Take medications as prescribed Monitor blood pressures Avoid social areas, you wear a mask when in social settings Encouraged to continue with yearly vaccinations Return to the emergency department if he developed sudden shortness of breath, chest pain, nausea, vomiting, upset stomach or intractable diarrhea Return to the emergency department if you develop fever greater than 100.4 Follow-up with the primary care physician within 1-2 weeks Thank you for choosing
--- NOTE | 2023-10-26 10:43 | PC.NURSE ---
Throat cx shows no pathogens. Dr. Torito danielle.
== END 2023-10-24 13:05 | disposition home or self-care (01) ==
LOC: ANHED 15:32 → ANH3MEDSUR 17:35 → ANH3MED 17:44 → ANH3MEDSUR 10-26 08:20
PROVIDERS: Internal Medicine Critical Care Medicine; Physician Assistant; Admitting Provider Internal Medicine; Emergency Provider Nurse Practitioner Family; PCP Emergency Medicine; Visit Provider Internal Medicine
DX: J02.9 Acute pharyngitis, unspecified (principal); J45.20 Mild intermittent asthma, uncomplicated; I10 Essential (primary) hypertension; Z20.822 Contact with and (suspected) exposure to COVID-19; F10.90 Alcohol use, unspecified, uncomplicated; Z79.891 Long term (current) use of opiate analgesic; Z79.899 Other long term (current) drug therapy
CPT/HCPCS: 31575; 36415; 70490; 80048; 80053; 82948; 83605; 83735; 85025; 85027; 86140; 87040; 87070; 87637; 87651; 96361; 96365; 96372; 96375; 99285; A9270; G0378; J0295; J1100; J1650; J1885; J7030

== ENCOUNTER 2023-11-02 09:42 | Outpatient (CLI) | payer MEDICARE, SELFPAY ==
[2023-11-02 10:30] LABS: Alanine Aminotransferase 27 U/L (6-35); Albumin Level 4.3 g/dL (3.5-5.1); Alkaline Phosphatase 88 U/L (38-126); Anion Gap 3 mmol/L (8-16); Aspartate Amino Transferase 34 U/L (14-36); Bilirubin,Total 0.6 mg/dL (0.2-1.3); Blood Urea Nitrogen 19 mg/dL (7-17); Calcium 9.1 mg/dL (8.4-10.2); Carbon Dioxide 29 mmol/L (22-30); Chloride 106 mmol/L (98-107); Estimated Glomerular Filt Rate > 60; Glucose 98 mg/dL (65-110); Potassium 4.1 mmol/L (3.4-5.0); Sodium 138 mmol/L (137-145)
[2023-11-02 10:45] LABS: Vitamin D 25 Hydroxy 36.7 ng/mL
== END 2023-11-02 09:43 | disposition home or self-care (01) ==
LOC: ANHLAB 09:44
PROVIDERS: PCP Emergency Medicine; Visit Provider Emergency Medicine
DX: E55.9 Vitamin D deficiency, unspecified (principal); I10 Essential (primary) hypertension
CPT/HCPCS: 36415; 80053; 82306

== ENCOUNTER 2023-11-23 13:29 | Outpatient (CLI) | payer MEDICARE, SELFPAY ==
--- NOTE | ~2023-11-23 | XR_ITS ---
XR_[id number]_CR DATE: 11/23/2023 13:43 INDICATION: Generalized knee pain. Knee replacement in 2010. TECHNIQUE: Weightbearing AP and lateral views COMPARISON: None FINDINGS: Mild suprapatellar knee joint effusion. Status post right knee arthroplasty. No radiographs are available for comparison. No fracture or dislocation, periosteal reaction or bone destruction is detected. There is osteopenia. Femoral, popliteal and trifurcation artery calcifications. IMPRESSION: Mild suprapatellar knee joint effusion Osteopenia Status post right knee arthroplasty Reviewed, dictated and finalized at [facility]. Reviewed, dictated and finalized at [facility].
== END 2023-11-23 13:30 | disposition home or self-care (01) ==
LOC: ANHIMG 13:31
PROVIDERS: PCP Emergency Medicine; Visit Provider Emergency Medicine
DX: M25.461 Effusion, right knee (principal); M85.88 Other specified disorders of bone density and structure, other site; Z96.651 Presence of right artificial knee joint
CPT/HCPCS: 73560

== ENCOUNTER 2023-12-11 11:23 | Outpatient (CLI) | payer MEDICARE, SELFPAY ==
--- NOTE | ~2023-12-11 | MM_ITS ---
EXAMINATION: MM screening jeferson BI w ana paula HISTORY: Screening mammogram TECHNIQUE: Craniocaudal and mediolateral oblique 3-D tomosynthesis images were obtained and synthetic 2-D images were generated. CAD analysis was submitted and interpreted. COMPARISON: 12/03/2022, 04/09/2021 bilateral screening mammogram examinations BREAST PARENCHYMAL COMPOSITION: The breasts are almost entirely fatty. FINDINGS: There is no evidence of suspicious mass, calcification, or architectural distortion to sugg est malignancy in either breast. There has been no suspicious interval change. IMPRESSION: 1. No mammographic evidence of malignancy. 2. Recommend routine screening mammography in one year. BI-RADS Category 1: Negative Reviewed, dictated and finalized at [facility].
== END 2023-12-11 11:24 | disposition home or self-care (01) ==
PROVIDERS: PCP Emergency Medicine; Visit Provider Emergency Medicine
DX: Z12.31 Encounter for screening mammogram for malignant neoplasm of breast (principal)
CPT/HCPCS: 77063; 77067

== ENCOUNTER 2024-04-20 16:00 | Outpatient (RCR) | payer MEDICARE, SELFPAY ==
--- NOTE | 2024-02-25 11:49 | OPREHPOC ---
Outpatient Therapy Plan of Care This is a Multidisciplinary Plan of Care that may contain components documented by all disciplines (PT, OT, and ST.) PT Problem 1 PT Problem #1 Knowledge Deficit PT Goal 1 Goal 1. Patient will perform independent HEP Target Visit 2 PT Problem 2 PT Problem #2 Pain PT Goal 1 Goal 1. No pain with pelvic exam 2. Pain no higher than 1/10 with sitting Target Visit 5 PT Problem 3 PT Problem #3 Impaired Strength PT Goal 1 Goal 1. Improve pelvic floor strength to 4/5 to improve symptoms of prolapse and reduce incontinence 2. Improve pelvic floor endurance to 10 seconds to improve symptoms of prolapse and reduce incontinence Target Visit 5
--- NOTE | 2024-02-25 11:49 | PTOPEVAL1 ---
Assessment and note entered by Sandra Toribio DPT Evaluation Information Assessment Status Evaluation Subjective Information Pt reports a prolapse and feels a lot of pressure and discomfort with sitting. Has been worsening over the past couple years. Highest pain 5/10 and lowest 0/10. Feels better in the morning and worse as the day goes on. Voids less than 10 times a day, maybe 1 time at night. Incontinence very infrequently, possibly once a month. Can hold urge to void at least 10 minutes. Denies pain with urination. BM once a day, denies pain. Denies history of pelvic pain. Pt has been 3 times, 2 vaginal deliveries and had an episiotomy with her first. Partial hysterectomy in the . Denies any other [employer] or b/b history. Patient goal: get rid of the pressure. States it is very bothersome. Return to MD is not currently scheduled. Reported Pain Level Pain Score Mild Pain: [place] Landin Assessment PT Clinical Summary The patient is presenting to skilled therapy with a cystocele which is contributing to symptoms of pressure and pain sitting. She presents with decreased pelvic floor strength and endurance as well as decreased overall hip and core strength. She will highly benefit from therapy to address her impairments in order to reduce pain and improve function. Plan of Care Interventions Manual Therapy,Neuro Re-education,Patient/ Caregiver Education,Therapeutic Activities, Therapeutic Exercise PT Services Indicated Yes Treatment Frequency and 1 time a week for 5 visits Duration These treatments will address the objective and functional deficits as defined above. The patient will be advanced safely and appropriately in order for the patient to progress towards his/her prior level of function. Additional exercises will be introduced and as well as a comprehensive home exercise program upon discharge, if needed, ?to ensure carryover of functional gains achieved in the clinic. This treatment plan has been reviewed and agreement upon by the patient.
--- NOTE | 2024-04-04 10:27 | OPREHPOC ---
Outpatient Therapy Plan of Care This is a Multidisciplinary Plan of Care that may contain components documented by all disciplines (PT, OT, and ST.) PT Problem 1 PT Problem #1 Knowledge Deficit PT Goal 1 Goal 1. Patient will perform independent HEP Target Visit 2 Progress Met PT Problem 2 PT Problem #2 Pain PT Goal 1 Goal 1. No pain with pelvic exam 2. Pain no higher than 1/10 with sitting Target Visit 9 Progress Not Met PT Problem 3 PT Problem #3 Impaired Strength PT Goal 1 Goal 1. Improve pelvic floor strength to 4/5 to improve symptoms of prolapse and reduce incontinence 2. Improve pelvic floor endurance to 10 seconds to improve symptoms of prolapse and reduce incontinence Target Visit 9 Progress Not Met
--- NOTE | 2024-04-04 10:27 | PTOPPROG ---
Assessment and note entered by Sandra Toribio DPT Evaluation Information Assessment Status Progress Subjective Information Highest pain 5/10 and lowest 0/10. Still has days where she feels better than others. Denies any recent urinary incontinence. Thinks she is voiding maybe 8 times throughout the day. Assessment PT Clinical Summary The patient reports she continues to have prolapse symptoms at times at pain up to 5/10 depending on activity level. She continues to demonstrate decreased core strength and decreased pelvic floor strength and endurance with significant compensates. It is my professional opinion that she will continue to benefit from therapy as she continues to require many cues to perform pelvic floor strengthening correctly in order to reduce symptoms of prolapse. Discussed importance of performing exercises and daily activities correctly this visit as well as continued internal assessment of kegel (patient has declined in the past multiple times) in order to progress in therapy. Plan of Care Interventions Manual Therapy,Neuro Re-education,Patient/ Caregiver Education,Therapeutic Activities, Therapeutic Exercise PT Services Indicated Yes Treatment Frequency and 1 time a week for 4 visits Duration These treatments will address the objective and functional deficits as defined above. The patient will be advanced safely and appropriately in order for the patient to progress towards his/her prior level of function. Additional exercises will be introduced and as well as a comprehensive home exercise program upon discharge, if needed, ?to ensure carryover of functional gains achieved in the clinic. This treatment plan has been reviewed and agreement upon by the patient.
--- NOTE | 2024-04-27 15:21 | PCPTNOTE ---
Patient called to cancel appointment for 04/27/24 due to UTI.
--- NOTE | 2024-05-04 14:05 | PCPTNOTE ---
Patient called to cancel appointment on 05/04/24 due to personal conflict. Plans to call back to reschedule at a later time.
== END 2024-05-25 23:59 | disposition home or self-care (01) ==
LOC: ANHPT 16:00
PROVIDERS: PCP Emergency Medicine; Visit Provider Nurse Practitioner Obstetrics & Gynecology
DX: N81.10 Cystocele, unspecified (principal)
CPT/HCPCS: 97110; 97112; 97161; 97530

== ENCOUNTER 2024-06-27 14:36 | Outpatient (CLI) | payer MEDICARE, SELFPAY ==
[2024-06-27 14:57] LABS: Hematocrit 41.7 % (37.0-47.0); Hemoglobin 14.4 g/dL (12.0-15.0); Mean Corpuscular HGB Conc 34.5 g/dl (32-36); Mean Corpuscular Hemoglobin 35.3 pg (26-34); Mean Corpuscular Volume 102.2 fl (80-100); Mean Platelet Volume 10.4 fl (7.4-10.4); Platelet Count Result 219 k/mm3 (150-375); Red Blood Count 4.08 M/mm3 (4.2-5.4); Red Cell Distribution Width 12.3 % (11.5-14.5); White Blood Count 9.2 K/mm3 (4.5-10.0)
[2024-06-27 15:10] LABS: Alanine Aminotransferase 18 U/L (6-35); Albumin Level 4.5 g/dL (3.5-5.1); Alkaline Phosphatase 76 U/L (38-126); Anion Gap 7 mmol/L (4-12); Aspartate Amino Transferase 25 U/L (14-36); Bilirubin,Total 0.8 mg/dL (0.2-1.3); Blood Urea Nitrogen 18 mg/dL (7-17); Calcium 9.5 mg/dL (8.4-10.2); Carbon Dioxide 29 mmol/L (22-30); Chloride 101 mmol/L (98-107); Estimated Glomerular Filt Rate > 60; Glucose 118 mg/dL (65-110); Sodium 137 mmol/L (137-145)
[2024-06-27 15:38] LABS: Thyroid Stimulating Hormone 0.762 uIU/mL (0.465-4.680)
[2024-06-27 16:10] LABS: Vitamin D 25 Hydroxy 34.2 ng/mL
== END 2024-06-27 14:37 | disposition home or self-care (01) ==
LOC: ANHLAB 14:38
PROVIDERS: PCP Emergency Medicine; Visit Provider Emergency Medicine
DX: R53.83 Other fatigue (principal); E55.9 Vitamin D deficiency, unspecified; E78.5 Hyperlipidemia, unspecified; E03.9 Hypothyroidism, unspecified
CPT/HCPCS: 36415; 80053; 82306; 84443; 85027

== ENCOUNTER 2024-07-03 10:01 | Outpatient (CLI) | payer MEDICARE, SELFPAY ==
--- NOTE | ~2024-07-03 | XR_ITS ---
EXAMINATION: XR abdomen obstructive series DATE: 07/03/2024 10:36 INDICATION: Generalized abdominal pain. TECHNIQUE: Upright and supine views of the abdomen on 3 radiographs were obtained. COMPARISON: None. FINDINGS: There are no dilated loops of bowel. There is a small volume of stool in the colon. There i s no free intraperitoneal gas. IMPRESSION: 1. Normal bowel gas pattern. Reviewed, dictated and finalized at location [facility].
[2024-07-03 10:58] LABS: Hemoglobin 14.7 g/dL (12.0-15.0); Mean Corpuscular HGB Conc 34.2 g/dl (32-36); Mean Corpuscular Hemoglobin 35.1 pg (26-34); Mean Corpuscular Volume 102.6 fl (80-100); Mean Platelet Volume 10.3 fl (7.4-10.4); Platelet Count Result 299 k/mm3 (150-375); Red Blood Count 4.19 M/mm3 (4.2-5.4); Red Cell Distribution Width 12.1 % (11.5-14.5); White Blood Count 9.1 K/mm3 (4.5-10.0)
[2024-07-03 11:39] LABS: Thyroid Stimulating Hormone 0.781 uIU/mL (0.465-4.680)
== END 2024-07-03 10:02 | disposition home or self-care (01) ==
LOC: ANHLAB 10:04
PROVIDERS: PCP Emergency Medicine; Visit Provider Emergency Medicine
DX: E03.9 Hypothyroidism, unspecified (principal); R53.83 Other fatigue; R10.9 Unspecified abdominal pain
CPT/HCPCS: 36415; 74019; 84443; 85027

== ENCOUNTER 2024-07-18 15:50 | Emergency (ER) | payer MEDICARE, SELFPAY ==
--- NOTE | ~2024-07-18 | XR_ITS ---
EXAMINATION: XR hand LT min 3V DATE: 07/18/2024 16:08 INDICATION: Left hand injury and pain. TECHNIQUE: 4 views of left hand were obtained. COMPARISON: Left hand fifth digit radiographs 04/12/21 FINDINGS: Bone alignment is normal. No fracture. There is moderate osteoarthritis of first carpometac arpal joint and mild osteoarthritis of some of the interphalangeal joints. IMPRESSION: 1. Polyarticular osteoarthritis. Reviewed, dictated and finalized at location A. MANAGER
[2024-07-18 15:51] VITALS: BP 161/88; PULSE 79; RESP 16; TEMP 36.7; O2SAT 99
--- NOTE | 2024-07-18 15:52 | ED_ITS ---
HPI - Animal Bite General Chief Complaint: Animal Bite Stated Complaint: bit by hawk on left hand Time Seen by Provider: 07/18/24 15:52 Focused HPI: This is a 84 year old female that presents to the ER for laceration to the left hand. Reports a hawk scratched her left hand with its claws. Reports mild pain and bleeding to the area. Denies decreased ROM or numbness. GENERAL: Well-appearing, well-nourished, and in no acute distress. HEAD: Normocephalic, atraumatic. CHEST: Clear to auscultation. ?No respiratory distress. HEART: Regular rate and rhythm.? NEURO: ?Alert and oriented x3. Patient screened in triage and initial orders placed.? ?Additional care and disposition to be based upon?diagnostic testing and treatment. Related Data Home Medications Medication Instructions Recorded Confirmed calcium 600 mg (as 1 cap PO DAILY 08/16/19 07/03/24 carbonate)-vitamin D3 5 mcg (200 unit) capsule (Calcium 600 + D(3)) multivitamin (Daily Multi-Vitamin 1 tablet PO DAILY 08/16/19 07/03/24 tablet) omega 7-vzz-bwu-fish oil 1,000 mg 1 cap PO DAILY 08/16/19 07/03/24 (120 mg-180 mg) capsule (Fish Oil) potassium acetate 99 meq BYMOUTH DAILY 08/16/19 07/03/24 magnesium 200 mg tablet 200 mg PO DAILY 10/21/23 07/03/24 Allergies Allergy/AdvReac Type Severity Reaction Status Date / Time erythromycin base Allergy Mild Nausea Verified 05/23/24 13:53 Review of Systems 2 Review of Systems: All systems reviewed & are unremarkable except as noted in HPI and below Constitutional: Constitutional: Denies fever(s) Integumentary/Breasts: Comments: reports laceration PMFSH Past Medical History Medical History Asthma Chest pain Cystocele Dysuria Gastric ulcer Hypertension Melanoma Neck pain on right side Pain on swallowing Pharyngitis Protrusion of rectum into vagina UTI (urinary tract infection) Surgical History Surgical History Amputation toe History of appendectomy History of arthroplasty of right knee History of dilation and curettage History of endometrial ablation History of hysterectomy Family History Family History Father Heart attack Asthma Hypertension Heart disease Mother Encephalitis Social History Social History Social History: Surrogate medical decision maker: Griffin Caballero, spouse. Code status: Full code. Smoking status: Never smoker Alcohol intake: current Substance use: never Do You Feel Safe in your Home?: Yes Lack of Transportation: YES Lack of Food: Never True Current Housing: Decline to Answer Concerned About Future Housing: Decline to Answer Difficulty Paying Gas/Electric Bills: Decline to Answer Difficulty Paying for Meds: Decline to Answer Currently Unemployed: Decline to Answer Education: High School Diploma/GED Difficulty w/ Childcare or Family Care: Decline to Answer Spiritual care concerns: No Exam Const: General: healthy appearing and no acute distress Nutritional Appearance: well nourished Skin: General skin exam: normal color Wounds: wounds noted (three small superficial lacerations to the left hand dorsal surface) Course Course Emergency Course: patient agrees with plan of care Vital Signs Vital signs: Vital Signs Temperature 98.1 F 07/18/24 15:51 Pulse Rate 79 07/18/24 15:51 Respiratory Rate 16 07/18/24 15:51 Blood Pressure 161/88 H 07/18/24 15:51 Pulse Oximetry 99 07/18/24 15:51 Oxygen Delivery Room Air 07/18/24 15:51 Temperature 98.1 F 07/18/24 15:51 Pulse Rate 79 07/18/24 15:51 Respiratory Rate 16 07/18/24 15:51 Blood Pressure 161/88 H 07/18/24 15:51 Pulse Oximetry 99 07/18/24 15:51 Oxygen Delivery Room Air 07/18/24 15:51 MDM - Animal Bite MDM Narrative Medical decision making narrative: patient presents to the ER for a scratch from a hawk. Wound are very superficial. Irrigated and covered with antibiotic ointment and a band aid. She was instructed on wound care. Hand x-ray without acute findings. Updated on tetanus vaccination. She is to follow up with PCP as needed Differential Diagnosis Differential diagnosis: Likely bite by animal and other (scratch) Imaging Data Radiologist's impression: ITS Impressions Hand X-Ray 07/18/24 16:09 IMPRESSION: 1. Polyarticular osteoarthritis. Critical Care Time Critical Care Time Critical Care Time: No Discharge Plan Discharge Clinical Impression: Superficial abrasion Patient Disposition: Home, Self-Care Condition: Stable Instructions: Antibiotic Form, Abrasion (ED) Additional Instructions: Return to the ER if you experience fever, redness and swelling of your hand, abnormal drainage from the wound, or any other symptoms that are concerning to you Keep the area clean with soap and water. Apply antibiotic ointment daily. Do not soak the wound Follow up with your primary care doctor Prescriptions: No Action azelastine 137 mcg (0.1 %) aerosol,spray 1 - 2 spray intranasal .qd-bid Qty: 30 0RF Rx Instructions: administer into each nostril. Aim back/up/out. Call for refills hydrocortisone [Procto-Med HC] 2.5 % cream with perineal applicator 1 applic RECTAL DAILY PRN (Reason: hemorrhoids) Qty: 30 0RF multivitamin [Daily Multi-Vitamin] Tablet 1 tablet PO DAILY Calcium 600 + D(3) 600 mg calcium- 200 unit Capsule 1 cap PO DAILY omega 1-poi-ggf-fish oil [Fish Oil] 1,000 mg (120 mg-180 mg) Capsule 1 cap PO DAILY potassium acetate 99 meq BYMOUTH DAILY magnesium 200 mg Tablet 200 mg PO DAILY metoprolol succinate 100 mg tablet extended release 24 hr See Rx Instructions .ROUTE .COMPLEX Qty: 90 2RF Dose Instruction: TAKE 1 TABLET BY MOUTH DAILY Rx Instructions: TAKE 1 TABLET BY MOUTH DAILY gabapentin 600 mg tablet See Rx Instructions .ROUTE .COMPLEX Qty: 180 2RF Dose Instruction: TAKE 1 TABLET BY MOUTH TWICE DAILY Rx Instructions: TAKE 1 TABLET BY MOUTH TWICE DAILY zafirlukast 20 mg tablet See Rx Instructions .ROUTE .COMPLEX Qty: 180 2RF Dose Instruction: TAKE 1 TABLET BY MOUTH TWICE DAILY Rx Instructions: TAKE 1 TABLET BY MOUTH TWICE DAILY tramadol 50 mg tablet 50 mg PO BID PRN (Reason: pain) Qty: 60 1RF Follow-up/Referrals: Cody Stallworth MD [Primary Care Provider] -
[2024-07-18] MEDS: TETANUS,DIPHTHERIA,AC PERTUSSIS ADULT (0.5 ML) BOOSTRIX IM (16:28)
[2024-07-18 16:31] VITALS: BP 128/63; PULSE 88; RESP 15; O2SAT 100
== END 2024-07-18 16:39 | disposition home or self-care (01) ==
LOC: ANHED 16:35
PROVIDERS: Emergency Provider Physician Assistant; PCP Emergency Medicine
DX: S60.512A Abrasion of left hand, initial encounter (principal); J45.909 Unspecified asthma, uncomplicated; I10 Essential (primary) hypertension; Z23 Encounter for immunization; W61.92XA Struck by other birds, initial encounter
CPT/HCPCS: 73130; 90471; 90715; 99283

== ENCOUNTER 2024-10-30 15:31 | Outpatient (CLI) | payer MEDICARE, SELFPAY ==
[2024-10-30 15:59] LABS: Alanine Aminotransferase 18 U/L (6-35); Albumin Level 4.2 g/dL (3.5-5.1); Alkaline Phosphatase 73 U/L (38-126); Anion Gap 6 mmol/L (4-12); Aspartate Amino Transferase 30 U/L (14-36); Bilirubin,Total 0.6 mg/dL (0.2-1.3); Blood Urea Nitrogen 22 mg/dL (7-17); Calcium 9.4 mg/dL (8.4-10.2); Carbon Dioxide 30 mmol/L (22-30); Chloride 102 mmol/L (98-107); Estimated Glomerular Filt Rate > 60; Glucose 98 mg/dL (65-110); Potassium 4.8 mmol/L (3.4-5.0); Sodium 138 mmol/L (137-145)
[2024-10-30 17:16] LABS: Vitamin D 25 Hydroxy 36.3 ng/mL
--- OUTSIDE RECORDS SUMMARY | 2024-10-30 18:05 | XMS_ITS | Encounter Summary ---
Author Organization [facility] Address [address] [facility] [place] [address] Care Team Providers Care Automation Sales Manager Name Role Phone Cody Stallworth MD Primary Care Provider Encounter Details Date Type Department Care Team (Late st Contact Info) Description 05/18/2019 Lab Requisition [facility] DermPath Lab [address] [facility] [place] [id number] Bassam Goldsmith MD [address] [place] [address] Social History Tobacco Use Types Packs/Day Years Used Date Smoking Tobacco: Never Assessed Sex and Gender Information Value Date Recorded Sex Assigned at Not on file Gender Identity Not on file Sexual Orientation Not on file documented as of this encounter Plan of Treatment Not on file documented as of this encounter Procedures Procedure Name Priority Date/Time Associated Diagnosis Comments DERMATOPATHOLOGY Routine 05/17/2019 12:0 0 AM CDT documented in this encounter Results * DERMATOPATHOLOGY (05/17/2019 12:00 AM CDT) Case Report Dermatopathology Report Case: [id number] Authorizing Provider: Bassam Goldsmith MD Collected: 05/17/2019 12:00 AM Ordering Location: [facility] DermPath Lab Received: 05/18/2019 12:20 PM Pathologist: Sarahi Natarajan MD Specimens: A) - Skin, left proximal forearm near elbow B) - Skin, left proximal ext forearm 9 2:28 PM CDT DERMATOPATHOLOGY LABORATORY Final Diagnosis Specimen A. SKIN, left proximal forearm near elbow: EPIDERMOID CYST (L72.0) Specimen B. SKIN, left proximal ext forearm: RUPTURED EPIDERMOID CYST (L72.0) 2:28 PM T DERMATOPATHOLOGY LABORATORY Clinical History A-B: R/O DF vs BCC vs foreign body vs rheumatoid nodule. 2:28 PM CDT DERMATOPATHOLOGY LABORATORY Gross Description Specimen A: Received is one formalin filled container labeled with the patient's name and designated left proximal forearm near elbow. The specimen consists of a punch biopsy measuring [id number], bisected. Jar 0. Specimen B: Received is one formalin filled container labeled with the patient's name and designated left proximal ext forearm. The specimen consists of a punch biopsy measuring [id number], bisected. Jar 0. 2:28 PM CDT DERMATOPATHOLOGY LABORATORY Microscopic Description Specimen A. SKIN, left proximal forearm near elbow: Within the dermis, there is a space lined by epithelium that resembles normal epidermis and the infundibular portion of the hair follicle. Specimen B. SKIN, left proximal ext forearm: Within the dermis, there is an infiltrate composed of lymphocytes and histiocytes, including multinucleated type giant cells. Some histiocytes contain flakes of material consistent with keratin. 2:28 PM CDT DERMATOPATHOLOGY LABORATORY Disclaimer An external and internal positive and negative controls are appropriate for the histochemical, immunohistochemical and immunofluorescence stain(s) in this case (if any), except where stated explicitly. The performance characteristics of the stain(s) cited in this report were developed and its performance characteristic determined by the Dermatopathology Laboratory at [facility], directed by Dr. Ja Natarajan. These tests need not be, and therefore are not, approved by the [place] Food and Drug Administration. The tests are used for clinical purposes. Billing Codes Specimen Charges Stain Charges 41626 26858 1 1 2:28 PM CDT DERMATOPATHOLOGY LABORATORY Embedded Images 2:28 PM CDT DERMATOPATHOLOGY LABORATORY Pathology/Cytology TISSUE SPECIMEN FROM SKIN / Unknown 05/17/2019 05/18/2019 12:20 PM CDT Miscellaneous samples (specimen) TISSUE SPECIMEN FROM SKIN / Unknown 05/17/2019 05/18/2019 12:20 PM CDT Bassam Goldsmith MD LAB - PATHOLOGY/CYTO LOGY ORDERABLES DERMATOPATHOLOGY LABORATORY [facility] - Department of Dermatology [address] [place] [address] 5th Floor Lab [address] [phone] documented in this encounter Visit Diagnoses Not on filedocumented in this encounter Care Teams Automation Sales Manager Relationship Specialty Start Date End Date Cody Stallworth MD [facility] [address] [place] [id number] PCP - General 02/23/20 documented as of this encounter
--- OUTSIDE RECORDS SUMMARY | 2024-10-30 18:05 | XMS_ITS | Continuity of Care Document ---
Author Organization [facility] Address [address] [place] [address] [address] [place] [address] Phone Care Team Providers Care Consulting Solution Director Name Role Phone PachecoBharat Curry Unavailable Unavailable Procedures Procedure Date Therapeutic Activities Neuromuscular Re-Ed Manual Therapy Hot or Cold Pack Therapeutic Activities Progress Note Neuromuscular Re-Ed Manual Therapy Hot or Cold Pack Therapeutic Activities Neuromuscular Re-Ed Hot or Cold Pack Manual Therapy Therapeutic Activities Neuromuscular Re-Ed Hot or Cold Pack Manual Therapy Neuromuscular Re-Ed Therapeutic Activities Manual Therapy Hot or Cold Pack Manual Therapy Hot or Cold Pack Therapeutic Exercise Therapeutic Exercise Hot or Cold Pack Manual Therapy Therapeutic Activities Therapeutic Exercise Manual Therapy Hot or Cold Pack Therapeutic Exercise Therapeutic Activities Hot or Cold Pack Manual Therapy Progress Note Manual Therapy Therapeutic Activities Therapeutic Exercise Hot or Cold Pack Therapeutic Activities Manual Therapy Therapeutic Exercise Hot or Cold Pack OT Evaluation Low Complexity Hot or Cold Pack Therapeutic Activities Therapeutic Exercise Advance Directives Directive Yes / No Effective Date File Name No Information Encounters Encounter Description Practice Location Reason(s) For Visit Diagnoses Date Provider Providers Copied on Encounter [facility] [address], [id number], tel:[phone] [place] No Information 1 Pacheco Bharat. . [facility] [address], [place], [place], [id number], tel:[phone] [place] No Information 1 Pacheco Bharat. . [facility] [place] [address], [id number], tel:[phone] [place] No Information 1 Pacheco Bharat. . [facility], [place], [place], [id number], tel:[phone] [place] No Information 1 Pacheco Bharat. . [facility], [id number], tel:[phone] [place] No Information 1 Pacheco Bharat. . [facility], [place], [place], [id number], tel:[phone] [place] No Information 1 Pacheco Bharat. . [facility], [place], [place], [id number], tel:[phone] [place] No Information 1 Pacheco Bharat. . [facility] [place] [address], [id number], tel:[phone] [place] No Information May- 1 Pacheco Bharat. . [facility] [place] [address], [id number], tel:[phone] [place] No Information May- 1 Pacheco Bharat. . [facility], [id number], tel:[phone] [place] No Information Sep-0 1 Pacheco Bharat. . [facility], [id number], tel:[phone] [place] No Information May-0 1 Pacheco Bharat. . [facility], [id number], tel:[phone] [place] No Information 1 Pacheco Bharat. . Family History Family Member Type Diagnosis Age At Onset No Information Payers Payer name Insurance type Covered constitution party ID Ruben reeves(s) [place] Medicare Replacement CI [id number] Social History Type Description Quantity Date Captured Comments Sex Female Smoking Status No Information Chief Complaint And Reason For Visit No Information Reason For Referral Reason For Referral No Information History Of Present Illness Encounter Date Complaint History Of Prese nt Illness No Information Functional Status Date Functional Assessmen t No Information Instructions Date Instruction Additional Infor mation No Information Assessments Type Assessment Date No Information Patient Care Teams Name Effective Dates (start - stop) Status Members No Information
--- OUTSIDE RECORDS SUMMARY | 2024-10-30 18:05 | XMS_ITS | Referral Summary ---
Author Organization [facility] Address [address] [facility] [place] [address] Care Team Providers Care Environmental Change Analyst Name Role Phone Cody Stallworth MD Primary Care Provider [phone] Source Comments [facility] [employer],non-owned Affiliates and Associated Physician Practices is amultiple site organization consisting of ambulatory clinics and hospital sitesin [place], [place], [place] and [place]. This disclosure is being madepursuant to the Care Everywhere program and may not contain all information available regarding this patient. Last updated 18.[facility] [employer] Allergies Active Allergy Reactions Criticality Noted Date Comments Erythromycin Nausea and/or Vomiting 02/26/2020 Medications * Be aware that medications may not be up to date on this document. Alwaysverify current medications with the patient. Medication Sig Dispensed Refills Start Date End Date Status metoprolol succinate XL 24hr (TOPROL XL) 100 MG tablet metoprolol succinate ER 100 mg tablet,extended release 24 hr TAKE 1 TABLET BY MOUTH DAILY Active gabapentin (NEURONTIN) 600 MG tablet TK 1 T PO TID 11/06/2019 Active traMADol (ULTRAM) 50 MG tablet tramadol 50 mg tablet TK 1 T PO BID PRN Active zafirlukast (ACCOLATE) 20 MG tablet zafirlukast 20 mg tablet TAKE 1 TABLET BY MOUTH TWICE DAILY Active Active Problems No known active problems Social History Tobacco Use Types Packs/Day Years Used Date Smoking Tobacco: Former Smokeless Tobacco: Never Alcohol Use Standard Drinks/Week Comments Not Currently 0 (1 standard drink = 0.6 oz pur e alcohol) Sex and Gender Information Value Date Recorded Sex Assigned at Not on file Gender Identity Not on file Sexual Orientation Not on file Last Filed Vital Signs Vital Sign Reading Time Taken Comments Blood Pressure 141/88 03/13/2020 11:51 AM CDT Pulse 63 03/13/2020 11:51 AM CDT Temperature - - Respiratory Rate - - Oxygen Saturation - - Inhaled Oxygen Concentration - - Weight 54.4 kg (120 lb) 03/13/2020 8:22 AM CDT Height 154.9 cm (5' 1 ) 03/13/2020 8:22 AM CDT Body Mass Index 22.67 03/13/2020 8:22 AM CDT Plan of Treatment Not on file Care Teams Environmental Change Analyst Relationship Specialty Start Date End Date Cody Stallworth MD [address] [facility] [address] [place] [address] PCP - General 02/23/20
--- OUTSIDE RECORDS SUMMARY | 2024-10-30 18:05 | XMS_ITS | Encounter Summary ---
Author Organization [facility] Address [address] [facility] [place] [address] Care Team Providers Care Correctional Sergeant Name Role Phone Cody Stallworth MD Primary Care Provider [phone] Encounter Details Date Type Department Care Team (Late st Contact Info) Description 02/08/2020 Lab Requisition [facility] DermPath Lab [address] [facility] [place] [id number] Bassam Goldsmith MD [address] [place] [address] Social History Tobacco Use Types Packs/Day Years Used Date Smoking Tobacco: Never Assessed Sex and Gender Information Value Date Recorded Sex Assigned at Not on file Gender Identity Not on file Sexual Orientation Not on file documented as of this encounter Plan of Treatment Not on file documented as of this encounter Procedures Procedure Name Priority Date/Time Associated Diagnosis Comments DERMATOPATHOLOGY Routine 02/07/2020 12:0 0 AM CDT documented in this encounter Results * DERMATOPATHOLOGY (02/07/2020 12:00 AM CDT) Case Report Dermatopathology Report Case: [id number] Authorizing Provider: Bassam Goldsmith MD Collected: 02/07/2020 12:00 AM Ordering Location: [facility] DermPath Lab Received: 02/08/2020 01:08 PM Pathologist: Sarahi Natarajan MD Specimen: Skin, left tip of nose 0 5:27 PM CDT DERMATOPATHOLOGY LABORATORY Final Diagnosis Specimen A. SKIN, left tip of nose: SQUAMOUS CELL CARCINOMA, WELL DIFFERENTIATED (C44.321) 0 5:27 PM CDT DERMATOPATHOLOGY LABORATORY Clinical History R/O BCC 0 5:27 PM CDT DERMATOPATHOLOGY LABORATORY Gross Description Specimen A: Received is one formalin filled container labeled with the patient's name and designated left tip of nose. The specimen consists of a shave biopsy measuring 9x9x3 mm. Jar 0. 0 5:27 PM CDT DERMATOPATHOLOGY LABORATORY Microscopic Description Specimen A. SKIN, left tip of nose: Arising in the epidermis and extending into the dermis there are irregularly shaped aggregates of keratinocytes showing evidence of premature cornification. 0 5:27 PM CDT DERMATOPATHOLOGY LABORATORY Disclaimer An external and internal positive and negative controls are appropriate for the histochemical, immunohistochemical and immunofluorescence stain(s) in this case (if any), except where stated explicitly. The performance characteristics of the stain(s) cited in this report were developed and its performance characteristic determined by the Dermatopathology Laboratory at [facility], directed by Dr. Ja Natarajna. These tests need not be, and therefore are not, approved by the [place] Food and Drug Administration. The tests are used for clinical purposes. Billing Codes Specimen Charges Stain Charges 17229 1 0 5:27 PM CDT DERMATOPATHOLOGY LABORATORY Embedded Images 0 5:27 PM CDT DERMATOPATHOLOGY LABORATORY Pathology/Cytolog y TISSUE SPECIMEN FROM SKIN / Unknown 02/07/2020 02/08/2020 1:08 PM CDT Bassam Goldsmith MD LAB - PATHOLOGY/CYTO LOGY ORDERABLES DERMATOPATHOLOGY LABORATORY [facility] - Department of Dermatology [facility] [employer] [facility]/[address] [phone] documented in this encounter Visit Diagnoses Not on filedocumented in this encounter Care Teams Correctional Sergeant Relationship Specialty Start Date End Date Cody Stallworth MD [address] [place] [address] [address] [place] [id number] PCP - General 02/23/20 documented as of this encounter
--- OUTSIDE RECORDS SUMMARY | 2024-10-30 18:05 | XMS_ITS | Patient Health Summary ---
Author Organization [facility] [place] Address [address] [facility] [place] [address] Care Team Providers Care Commercial Finance Manager Name Role Phone Cody Stallworth MD Primary Care Provider [phone] Note from [facility],non-owned Affiliates and Associated Physician Practices is amultiple site organization consisting of ambulatory clinics and hospital sitesin [place], [place], [place] and [place]. This disclosure is being madepursuant to the Care Everywhere program and may not contain all information available regarding this patient. Last updated 18.[facility] [place] Allergies * Erythromycin(Nausea and/or Vomiting) Medications * Be aware that medications may not be up to date on this document. Alwaysverify current medications with the patient. * metoprolol succinate XL 24hr (TOPROL XL) 100 MG tablet metoprolol succinate ER 100 mg tablet,extended release 24 hr TAKE 1 TABLET BY MOUTH DAILY * gabapentin (NEURONTIN) 600 MG tablet(Started 11/06/2019) TK 1 T PO TID * traMADol (ULTRAM) 50 MG tablet tramadol 50 mg tablet TK 1 T PO BID PRN * zafirlukast (ACCOLATE) 20 MG tablet zafirlukast 20 mg tablet TAKE 1 TABLET BY MOUTH TWICE DAILY Active Problems No known active problems Social [...] Mass Index 22.67 03/13/2020 8:22 AM CDT Procedures * CULTURE WOUND+GRAM STAIN(Performed 03/20/2020) * RI CHMSRG MOHS MG TQ H/N/H/F/G 1ST STAG 5 BLOC(Performed 03/13/2020) 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 * RI ADJ TISS XFER LID,NOS,EAR <10SQCM(Performed 03/13/2020) 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 aureus, beta-hemolytic Streptococci or P. aeruginosa). 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 PostOp Size: 1.[address] [facility] Level of Defect: fat Procedure: The patient was placed supine on the operating table. The cancer was identified, outlined with a marker, and verified by the patient. The entire surgical field was prepped with iodine. The surgical site was anesthetized using Lidocaine 1% with epinephrine 1:100,000 buffered with sodium bicarbonate 8.4% in a 1:10 ratio. The area of clinically apparent tumor was debulked with 2mm curette. The layer of tissue was then surgically excised using a #15 blade and was then transferred onto a specimen sheet maintaining the orientation of the specimen. Hemostasis was obtained using monopolar electrodessication. The wound site was then covered with a dressing while the tissue samples were processed for examination. The excised tissue was transported to the [facility] histology laboratory maintaining the tissue orientation. The tissue specimen was relaxed so that the entire surgical margin was in a a single horizontal plane for sectioning andinked for precise mapping. A precise reference map was drawn to reflect the sectioning of the specimen, colored inking of the margins, and orientation on the patient. The tissue was processed using horizontal sectioning ofthe base and continuous peripheral margins. The histopathologic sections were reviewed in conjunction with the reference map. Total blocks: 1 Total slides: 3 Reconstruction: Advancement Flap PROCEDURE: The wound was debeveled and undermined broadly in all directions to the level of fat. Hemostasis was obtained using monopolar electrodessication. The advancement flap was incised to the level of fat removing a cone of redundant tissue. The flap was further undermined in all directions. Hemostasis was again obtained. The flap was then advanced into the defect and secured using buried dermal sutures. Redundant areas of tissue were excised using the triangulation technique. The flap wound edges of both the primary and secondary defects were then approximated with buried dermal sutures and the epidermis was then carefully approximated using simple running, vicryl 5-0;prolene 6-0 sutures. The wound was cleansed with saline, and ointment was applied along the wound surface. A sterile pressure dressing of non-adherent gauze was applied and wound care instructions were given verbally and in writing. The patient will return in seven to ten days for suture removal. The patient left the operating suite in stable condition. Anticipate Primghar-Abrasion to be used as a second stage of this reconstruction. Repair Size: 3.0 x 2.1 Sutures Used: vicryl 5-0;prolene 6-0 Marivel Jones MA I have reviewed the note, edited it as necessary and performed the entire procedure. Kelsy Taveras MD Sash Maker Kelsy Taveras MD PROCEDURE/MINOR SURG ICAL ORDERABLES * DERMATOPATHOLOGY (02/07/2020 12:00 AM CDT) Only the most recent of3 resultswithin the time period is included. Case Report Dermatopathology Report Case: [id number] Authorizing Provider: Bassam Goldsmith MD Collected: 02/07/2020 12:00 AM Ordering Location: [facility] Received: 02/08/2020 01:08 PM Pathologist: [...] characteristic determined by the Dermatopathology Laboratory at [facility], directed by Dr. Ja Natarajan. These tests need not be, and therefore are not, approved by the [place] Food and Drug Administration. The tests are used for clinical purposes. Billing Codes Specimen Charges Stain Charges 57268 1 0 5:27 PM CDT DERMATOPATHOLOGY LABORATORY Embedded Images 0 5:27 PM CDT DERMATOPATHOLOGY LABORATORY Pathology/Cytolog y TISSUE SPECIMEN FROM SKIN / Unknown 02/07/2020 02/08/2020 1:08 PM CDT Bassam Goldsmith MD LAB - PATHOLOGY/CYTO LOGY ORDERABLES Performing Organization Address City/State/[facility] Co de Phone Number DERMATOPATHOLOGY LABORATORY [facility] - Department of Dermatology [facility]/[address] [phone] Care Teams Commercial Finance Manager Relationship Specialty Start Date End Date Cody Stallworth MD [facility] [address] [place] [address] PCP - General 02/23/20
--- OUTSIDE RECORDS SUMMARY | 2024-10-30 18:05 | XMS_ITS | CONTINUITY OF CARE DOCUMENT ---
Author Name cassie geramagdaleno Address Unknown Organization [facility] Address [id number] [place] [address] [address] [place] [address] Phone [phone] Care Team Providers Care Clinic Scheduler Name Role Phone Dioni NUNEZ, Matthew Unavailable ZEFERINO NUNEZ, MILTON Unavailable BRIGIDO NUNEZ, RONA Unavailable [phone] INSURANCE PROVIDERS Payer name Policy type / Coverage type [place] [employer] party ID VIMAL MEDICARE ADVANTAGE Other [id number]
--- OUTSIDE RECORDS SUMMARY | 2024-10-30 18:05 | XMS_ITS | Clinical Summary ---
Author Organization [facility] Address [address] [facility] [place] [address] Care Team Providers Care Resident Care Assistant Name Role Phone Cody Stallworth MD Primary Care Provider [phone] Source Comments [facility],non-owned Affiliates and Associated Physician Practices is amultiple site organization consisting of ambulatory clinics and hospital sitesin [place], [place], [place] and [place]. This disclosure is being madepursuant to the Care Everywhere program and may not contain all information available regarding this patient. Last updated 18.[facility] Allergies Active Allergy Reactions Criticality Noted Date [...] 03/13/2020 8:22 AM CDT Plan of Treatment Health Maintenance Due Date Last Done Comments BONE DENSITY TESTING 1940 DTAP/TDAP/TD VACCINES (1 - Tdap) 01/09/1959 PNEUMOCOCCAL VACCINE 50+ (1 of 1 - PCV) 01/09/1990 ZOSTER VACCINE (1 of 2) 01/09/1990 Respiratory Syncytial Virus (RSV) Vaccine Pt: or over 60 yrs (1 - 1-dose 75+ series) 01/09/2015 COVID-19 VACCINE ( - 2023- season) 2024 INFLUENZA VACCINE (#1) 2024 9, 06/09/2018, 08/03/2017, Additional history exists DEPRESSION SCREENING 09/06/2024 HEPATITIS B VACCINE Aged Out No longe r eligible based on patient's age to complete this topic HIB VACCINE Aged Out No longer eligi ble based on patient's age to complete this topic HPV VACCINE Aged Out No longer eligi ble based on patient's age to complete this topic MENINGOCOCCAL (Group B) VACCINE Aged Out No longer eligible based on patient's age to complete this topic MENINGOCOCCAL VACCINE Aged Out No [place] eligible based on patient's age to complete this topic Care Teams Resident Care Assistant Relationship Specialty Start Date End Date Cody Stallworth MD [address] [facility] [address] [address] [facility] - General 02/23/20
== END 2024-10-30 15:32 | disposition home or self-care (01) ==
LOC: ANHLAB 15:32
PROVIDERS: PCP Emergency Medicine; Visit Provider Emergency Medicine
DX: E78.5 Hyperlipidemia, unspecified (principal); E55.9 Vitamin D deficiency, unspecified
CPT/HCPCS: 36415; 80053; 82306

== ENCOUNTER 2025-03-14 10:47 | Outpatient (CLI) | payer MEDICARE, SELFPAY ==
[2025-03-14 11:33] LABS: Alanine Aminotransferase 16 U/L (6-35); Albumin Level 4.3 g/dL (3.5-5.1); Alkaline Phosphatase 72 U/L (38-126); Anion Gap 5 mmol/L (4-12); Aspartate Amino Transferase 34 U/L (14-36); Bilirubin,Total 0.6 mg/dL (0.2-1.3); Blood Urea Nitrogen 19 mg/dL (7-17); Calcium 9.1 mg/dL (8.4-10.2); Carbon Dioxide 29 mmol/L (22-30); Chloride 105 mmol/L (98-107); Cholesterol 207 mg/dL (0-200); Estimated Glomerular Filt Rate > 60; Glucose 99 mg/dL (65-110); HDL Direct 60 mg/dL; Potassium 4.3 mmol/L (3.4-5.0); Sodium 139 mmol/L (137-145); Total Protein 7.2 g/dL (6.3-8.2); Triglycerides 118 mg/dL (<150)
== END 2025-03-14 10:48 | disposition home or self-care (01) ==
PROVIDERS: PCP Emergency Medicine; Visit Provider Emergency Medicine
DX: E78.5 Hyperlipidemia, unspecified (principal); E55.9 Vitamin D deficiency, unspecified
CPT/HCPCS: 36415; 80053; 80061; 82306

== ENCOUNTER 2025-08-23 14:55 | Outpatient (CLI) | payer MEDICARE, SELFPAY ==
[2025-08-23 15:34] LABS: Hematocrit 42.4 % (37.0-47.0); Hemoglobin 14.7 g/dL (12.0-15.0); Immature Granulocyte Percent A 0.4 % (0-0.5); Lymphocytes Absolute Auto 1.44 K/mm3 (0.9-3.2); Mean Corpuscular HGB Conc 34.7 g/dl (32-36); Mean Corpuscular Hemoglobin 35.1 pg (26-34); Mean Corpuscular Volume 101.2 fl (80-100); Nucleated Red Blood Cells Absolute Auto 0.000 K/mm3 (0.0-0.012); Nucleated Red Blood Cells Perc 0.0 % (0.0-0.2); Platelet Count Result 248 k/mm3 (150-375); Red Blood Count 4.19 M/mm3 (4.2-5.4); White Blood Count 7.0 K/mm3 (4.5-10.0)
--- OUTSIDE RECORDS SUMMARY | 2025-08-23 15:50 | XMS_ITS | Encounter Summary ---
Author Organization [facility] Address [address] [facility] [place] [address] Care Team Providers Care Cdl Program Coordinator Name Role Phone Cody Stallworth MD Primary Care Provider Encounter Details Date Type Department Care Team (Late st Contact Info) Description 05/18/2019 Lab Requisition [facility] DermPath Lab [address] [facility] [place] [id number] Bassam Goldsmith MD [address] [place], [place] [id number] Social History Tobacco Use Types Packs/Day Years Used Date Smoking Tobacco: Never Assessed Comments Unknown Sex and Gender Information Value Date Recorded Sex Assigned at Not on file 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 Gender Identity Not on file Sexual Orientation Not on file documented as of this encounter Plan of Treatment Not on file documented as of this encounter Procedures Procedure Name Priority Date/Time Associated Diagnosis Comments DERMATOPATHOLOGY Routine 05/17/2019 12:0 0 AM CDT documented in this encounter Results * DERMATOPATHOLOGY (05/17/2019 12:00 AM CDT) Case Report Dermatopathology Report Case: [id number] Authorizing Provider: Bassam Goldsmith MD Collected: 05/17/2019 12:00 AM Ordering Location: [facility] D[facility] Lab Received: 05/18/2019 12:20 PM Pathologist: Sarahi Natarajan MD Specimens: A) - Skin, left proximal forearm near elbow B) - Skin, left proximal ext forearm 9 2:28 PM CDT DERMATOPATHOLOGY LABORATORY Final Diagnosis Specimen A. SKIN, left proximal forearm near elbow: EPIDERMOID CYST (L72.0) Specimen B. SKIN, left proximal ext forearm: RUPTURED EPIDERMOID CYST (L72.0) 2:28 PM T DERMATOPATHOLOGY LABORATORY at 1428 CDT Clinical History A-B: R/O DF vs BCC vs foreign body vs rheumatoid nodule. 2:28 PM CDT DERMATOPATHOLOGY LABORATORY Gross Description Specimen A: Received is one formalin filled container labeled with the patient's name and designated left proximal forearm near elbow. The specimen consists of a punch biopsy measuring [id number], bisected. Jar 0. Specimen B: Received is one formalin filled container labeled with the patient's name and designated left proximal ext forearm. The specimen consists of a punch biopsy measuring [id number], bisected. Jar 0. 2:28 PM T DERMATOPATHOLOGY LABORATORY Microscopic Description Specimen A. SKIN, [...] characteristic determined by the Dermatopathology Laboratory at [facility], directed by Dr. Ja Natarajan. These tests need not be, and therefore are not, approved by the [place] Food and Drug Administration. The tests are used for clinical purposes. Billing Codes Specimen Charges Stain Charges 35699 23878 1 1 2:28 PM CDT DERMATOPATHOLOGY LABORATORY Embedded Images 2:28 PM CDT DERMATOPATHOLOGY LABORATORY Pathology/Cytology TISSUE SPECIMEN FROM SKIN / Unknown 05/17/2019 05/18/2019 12:20 PM CDT Miscellaneous samples (specimen) TISSUE SPECIMEN FROM SKIN / Unknown 05/17/2019 05/18/2019 12:20 PM CDT Bassam Goldsmith MD LAB - PATHOLOGY/CYTOLOGY ORD ERABLES Final Result DERMATOPATHOLOGY LABORATORY [facility] - Department of Dermatology [address] [place] [address] 5th Floor Lab [address] [phone] documented in this encounter Visit Diagnoses Not on filedocumented in this encounter Care Teams Cdl Program Coordinator Relationship Specialty Start Date End Date Cody Stallworth MD [address] [place] [address] 2 [place] [address] PCP - General 02/23/20 documented as of this encounter
--- OUTSIDE RECORDS SUMMARY | 2025-08-23 15:50 | XMS_ITS | Encounter Summary ---
Author Organization [facility] Address [address] [facility] [place] [address] Care Team Providers Care Account Support Manager Name Role Phone Cody Stallworth MD Primary Care Provider [phone] Encounter Details Date Type Department Care Team (Late st Contact Info) Description 02/08/2020 Lab Requisition [facility] DermPath Lab [address] [facility] [place] [address] Bassam Goldsmith MD [address] [place], [place] [id number] Social History Tobacco Use Types Packs/Day Years Used Date Smoking Tobacco: Never Assessed Comments Unknown Sex and Gender Information Value Date Recorded Sex Assigned at Not on file 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 Gender Identity Not on file Sexual Orientation Not on file documented as of this encounter Plan of Treatment Not on file documented as of this encounter Procedures Procedure Name Priority Date/Time Associated Diagnosis Comments DERMATOPATHOLOGY Routine 02/07/2020 12:0 0 AM CDT documented in this encounter Results * DERMATOPATHOLOGY (02/07/2020 12:00 AM CDT) Case Report Dermatopathology Report Case: [id number] Authorizing Provider: Bassam Goldsmith MD Collected: 02/07/2020 12:00 AM Ordering Location: [facility] DermPath Lab Received: 02/08/2020 01:08 PM Pathologist: Sarahi Natarajan MD Specimen: Skin, left tip of nose 0 5:27 PM CDT DERMATOPATHOLOGY LABORATORY Final Diagnosis Specimen A. SKIN, left tip of nose: SQUAMOUS CELL CARCINOMA, WELL DIFFERENTIATED (C44.321) 0 5:27 PM CDT DERMATOPATHOLOGY LABORATORY at 1727 CDT Clinical History R/O BCC 0 5:27 PM [...] characteristic determined by the Dermatopathology Laboratory at [facility], directed by Dr. Ja Natarajan. These tests need not be, and therefore are not, approved by the [place] Food and Drug Administration. The tests are used for clinical purposes. Billing Codes Specimen Charges Stain Charges [id number] 1 0 5:27 PM CDT DERMATOPATHOLOGY LABORATORY Embedded Images 0 5:27 PM CDT DERMATOPATHOLOGY LABORATORY Pathology/Cytolog y TISSUE SPECIMEN FROM SKIN / Unknown 02/07/2020 02/08/2020 1:08 PM CDT us Bassam Goldsmith MD LAB - PATHOLOGY/CYTOLOGY ORD ERABLES Final Result DERMATOPATHOLOGY LABORATORY [facility] - Department of Dermatology [facility]/[address] [phone] documented in this encounter Visit Diagnoses Not on filedocumented in this encounter Care Teams Account Support Manager Relationship Specialty Start Date End Date Cody Stallworth MD [facility] [place] [address] PCP - General 02/23/20 documented as of this encounter
--- OUTSIDE RECORDS SUMMARY | 2025-08-23 15:50 | XMS_ITS | Clinical Summary ---
Author Organization [facility] [employer] Address [address] [place] [address] Care Team Providers Care Strand And Binder Controller Name Role Phone Cody Stallworth MD Primary Care Provider [phone] Source Comments [facility] [employer],non-owned Affiliates and Associated Physician Practices is amultiple site organization consisting of ambulatory clinics and hospital sitesin [place], [place], [place] and [place]. This disclosure is being madepursuant to the Care Everywhere program and may not contain all information available regarding this patient. Last updated 18.[facility] [employer] Allergies Active Allergy Reactions Criticality Noted Date Comments Erythromycin Nausea and/or Vomiting 02/26/2020 Medications * Be aware that medications may not be up to date on this document. Alwaysverify current medications with the patient. 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 Gender Identity Not on file Sexual Orientation Not on file Last Filed Vital Signs Vital Sign Reading Time Taken Comments Blood Pressure 141/88 03/13/2020 11:51 AM CDT Pulse 63 03/13/2020 11:51 AM CDT Temperature - - Respiratory Rate - - Oxygen Saturation - - Inhaled Oxygen Concentration - - Weight 54.4 kg (120 lb) 03/13/2020 8:22 AM CDT Height 154.9 cm (5' 1) 03/13/2020 8:22 AM CDT Body Mass Index 22.67 03/13/2020 8:22 AM CDT Plan of Treatment Health Maintenance Due Date Last Done Comments BONE DENSITY TESTING 1940 DTAP/TDAP/TD VACCINES (1 - Tdap) 01/09/1959 PNEUMOCOCCAL VACCINE 50+ (1 of 1 - PCV) 01/09/1990 ZOSTER VACCINE (1 of 2) 01/09/1990 Respiratory Syncytial Virus (RSV) Vaccine Pt: or over 60 yrs (1 - 1-dose 75+ series) 01/09/2015 DEPRESSION SCREENING 09/06/2024 COVID-19 VACCINE ( - 2024- season) 2025 INFLUENZA VACCINE (#1) 2025 9, 06/09/2018, 08/03/2017, Additional history exists HEPATITIS B VACCINE Aged Out No longe r eligible based on patient's age to complete this topic HIB VACCINE Aged Out No longer eligi ble based on patient's age to complete this topic HPV VACCINE Aged Out No longer eligi ble based on patient's age to complete this topic MENINGOCOCCAL (Group B) VACCINE SHARED DECISION-MAKING Aged Out No longer eligible based on patient's age to complete this topic MENINGOCOCCAL GROUPS A/C/Y/W VACCINE Aged Out No longer eligible based on patient's age to complete this topic [place] [address] [employer] Care Teams Strand And Binder Controller Relationship Specialty Start Date End Date Cody Stallworth MD [facility] [place] [id number] PCP - General 02/23/20
[2025-08-23 15:51] LABS: Alanine Aminotransferase 19 U/L (6-35); Albumin Level 4.4 g/dL (3.5-5.1); Alkaline Phosphatase 78 U/L (38-126); Anion Gap 7 mmol/L (4-12); Aspartate Amino Transferase 38 U/L (14-36); Bilirubin,Total 0.7 mg/dL (0.2-1.3); Blood Urea Nitrogen 21 mg/dL (7-17); Calcium 10.0 mg/dL (8.4-10.2); Carbon Dioxide 27 mmol/L (22-30); Chloride 104 mmol/L (98-107); Estimated Glomerular Filt Rate > 60; Glucose 123 mg/dL (65-110); Potassium 4.0 mmol/L (3.4-5.0); Sodium 138 mmol/L (137-145); Total Protein 7.4 g/dL (6.3-8.2)
[2025-08-23 16:27] LABS: Thyroid Stimulating Hormone 1.090 uIU/mL (0.465-4.680)
== END 2025-08-23 14:56 | disposition home or self-care (01) ==
PROVIDERS: PCP Emergency Medicine; Visit Provider Emergency Medicine
DX: R53.83 Other fatigue (principal); E78.5 Hyperlipidemia, unspecified; E55.9 Vitamin D deficiency, unspecified; I10 Essential (primary) hypertension
CPT/HCPCS: 36415; 80053; 82306; 84443; 85025